=== PATIENT | male | born 1935 | race Caucasian/White ===

== ENCOUNTER 2023-12-31 19:23 | Observation (INO) | payer OTHER, SELFPAY ==
[2023-12-31 16:41] VITALS: BMI 27.8
[2023-12-31 16:46] VITALS: BP 119/99
--- NOTE | 2023-12-31 16:53 | EDRN ---
Haritha Brian PA in room w/ pt at this time.
[2023-12-31 17:00] VITALS: BP 143/95
[2023-12-31 17:07] LABS: % Basophils 0.6 % (0-2); % Eosinophils 2.2 % (0-6); % Immature Granulocytes 0.6 % (0-0.5); % Lymphocytes 28.2 % (20.5-51.1); % Monocytes 10.9 % (1.7-9.3); % Neutrophils 57.5 % (42.2-75.2); Absolute Basophils 0.1 10^3/uL (0-0.2); Absolute Eosinophils 0.3 10^3/uL (0-0.7); Absolute Immature Granulocytes 0.1 10^3/uL (0-0.05); Absolute Lymphocytes 3.2 10^3/uL (1.2-3.4); Absolute Monocytes 1.2 10^3/uL (0.1-0.6); Absolute Neutrophils 6.5 10^3/uL (1.4-6.5); Hematocrit 31.8 % (39.0-52.0); Hemoglobin 10.7 g/dL (13.0-18.0); Mean Corp Hgb Conc. 33.6 g/dL (33.0-37.0); Mean Corpuscular Hgb 31.5 pg (27.0-31.0); Mean Corpuscular Volume 93.5 fL (80.0-94.0); Mean Platelet Volume 10.8 fL (7.4-10.4); Nucleated Red Blood Cells % 0 % (-); Platelet Count 142 10^3/uL (130-400); Red Cell Dist. Width 14.4 % (11.5-14.5); White Blood Cell Count 11.2 10^3/uL (4.8-10.8)
[2023-12-31 17:16] LABS: INR 2.75
[2023-12-31 17:19] LABS: Lactic Acid 1.2 mmol/L (0.7-2.0)
[2023-12-31 17:20] LABS: ALT (SGPT) 26 U/L (0-50); AST (SGOT) 37 U/L (17-59); Alkaline Phosphatase 161 U/L (38-126); Blood Urea Nitrogen 26 mg/dl (9-20); Calcium 9.2 mg/dl (8.4-10.2); Carbon Dioxide 24 mmol/L (22-30); Chloride 106 mmol/L (98-107); Estimated Creatinine Clearance 48 ml/min; Glucose 171 mg/dl (70-99); Potassium 4.4 mmol/L (3.5-5.1); Sodium 139 mmol/L (135-145); Total Bilirubin 0.8 mg/dl (0.2-1.3); Total Protein 6.6 g/dl (6.3-8.2); eGFR > 60.00
--- NOTE | 2023-12-31 17:20 | EDRN ---
Pacemaker interrogated at this time.
[2023-12-31 17:30] LABS: NT-proBNP 2590 pg/ml; Troponin I < 0.012 ng/ml
--- NOTE | 2023-12-31 17:50 | EDRN ---
Pt attempting urine spec in BR at this time.
[2023-12-31 18:03] VITALS: BP 153/92
--- NOTE | 2023-12-31 18:11 | EDRN ---
Pt ambulated w/ assist of one to and from BR and provided a urine spec. Haritha FLOYD is w/ pt and family in room at this time.
--- NOTE | 2023-12-31 18:12 | ED.GENMED ---
History of Present Illness
General
Chief Complaint: Breathing Problem
Time Seen by Provider: 12/31/23 16:59
Travel History
Have you had any contact with someone who has COVID-19?: No
Do you have any symptoms of coronavirus? Fever > 100 degrees, chills, cough, shortness of breath, sore throat, loss of taste or smell, muscle aches, or headache?: Yes
Symptoms:: SOB
History of Present Illness
History of Present Illness:
88-year-old male with history of hypertension, hyperlipidemia, coronary artery disease status post CABG x 5 (greater than 20 years ago at [facility]), diet-controlled type 2 diabetes, and status post PPM presents to the emergency department
for evaluation after a syncopal event. He had notes that he has been dyspneic on exertion for the past 3 to 4 days and is planning to follow-up with his bail bondsman next week for reevaluation. Denies any current chest pain or shortness of breath
while at rest. He arrives by EMS today as he was apparently walking to get the mail he states he began to feel lightheaded and gradually went himself to the ground. He had a syncopal event that was witnessed by bystander, no reported fall or head
strike . He does take Xarelto. Follows with Dr. Samuels through [facility] cardiology
Past History
Past History
ED Past Medical History: CAD, HTN, Hypercholesterolemia, NIDDM, Other (Diverticulosis, GI bleed March 2015) and Other (kidney stones)
ED Past Surgical History: Cardiac (pacer, CABG x4)
Social History
Tobacco: Non-smoker
Alcohol: None
Drug: None
Personal:
Living: with family
Employment: Retired
Family History
Family History: Other (Noncontributory)
Review of Systems
Review of Systems
Allergies reviewed?: Yes
All Other Systems: ROS reviewed and negative except as documented in HPI and ROS
Phy Exam
Physical Exam
Physical Exam:
GEN: Well appearing, NAD, WDWN
Eyes: PERRLA, EOMs intact, no scleral icterus
HENT: NCAT, oral mucosa moist, no JVD
Lungs: CTAB, no wheezes, rales, rhonchi, normal chest wall excursion
Cardiac: RRR, 4/6 holosystolic murmur, no rubs
Abdomen: S, NT, ND, NABS, no masses or hepatosplenomegaly
Neuro: AO x 3, no focal deficits to BUE/BLE, normal sensation throughout
MSK: No gross deformity or ecchymosis. No edema. No digital clubbing
Skin: No rashes, petechiae. Normal color, no pallor or jaundice.
Psych: Calm, cooperative, proper hygiene
Scores
Heart Failure Risk
Heart Failure Risk Score: Not Applicable
Course
Orders/Labs/Results
Orders:
Orders
12/31/23 Breakfast
Cholesterol Lowering
12/31/23 Dinner
2000 calorie (17 carb) Diabetic
Diabetic Diet: Cholesterol Lowering
Sodium, 2 Gram
12/31/23 16:44
Electrocardiogram (*1) Urgent
Reason for Study: Other
Other Reason for Exam: Possible Sepsis
Cardiac Monitoring- Treatment ONCE
IV Insert/Care/Rem.- Treatment PRN
12/31/23 16:45
CT Head W/o Iv Contrast Urgent
Comment:
Reason For Exam: syncope
EKG- Treatment ONCE
CR Chest - 2 Views Urgent
Comment:
Reason For Exam: suspected infection
12/31/23 16:58
Complete Blood Count/With Diff Urgent
Comprehensive Metabolic Panel Urgent
Lactic Acid Q4H
Comment: ON ICE, CANCEL 2ND ORDER IF FIRST LACTIC ACID LEVEL <2
NT-proBNP Urgent
Prothrombin Time Urgent
Troponin I Urgent
Urinalysis Reflex To Culture Urgent
Date Specimen was Collected: 12/31/23
Time Specimen was Collected: 16:45
Urine Microscopic Reflex Cult Urgent
Blood Culture Q30M
TIMI Source: Blood/Venous
Specimen Description:
Comment: FROM 2 SEPARATE SITES
Urine Culture Urgent
TIMI Source: U
Specimen Description:
Date Specimen was Collected: 12/31/23
Time Specimen was Collected: 16:45
12/31/23 17:10
Blood Culture Q30M
TIMI Source: Blood/Venous
Specimen Description:
Comment: FROM 2 SEPARATE SITES
12/31/23 18:55
Admit/Transfer Patient As Directed
Co-Sign Provider:
Level of Care: Observation services
Assign to:: Telemetry
Physician / Group: Hasmukh
Diagnosis: Syncope
Reason for Telemetry: Syncope
Date to Stop Telemetry: 01/02/24
Time to Stop Telemetry: 11:00
12/31/23 18:59
Code Status As Directed
Resuscitation Status: Full Code
12/31/23 20:30
Acetaminophen [Tylenol] 650 mg PO Q4HPRN PRN
Dextrose 50%-Water [Dextrose 50% Syringe] 12.5 grams IV [id number] PRN
Glucagon [GlucaGen] 1 mg IM PRN PRN
12/31/23 20:30
Echo 2D MMode Color/Doppler Routine
Reason for Study: syncope, murmur
Cardiology Consult: Star Pickens
CARDIOLOGY CONSULT Routine
Consulting Provider: Star Pickens
Was physician already notified: Yes
Activity As Directed
Activity Level: Out of Bed- Chair
Bedside Glucose Monitoring As Directed
Frequency: AC&HS
Comment: Change to q6h if pt on TPN, tube feeding or not eating
I&O [Intake/ Output] As Directed
Frequency: q12h
Orthostatic Vital Signs As Directed
Orthostatic VS Frequency: BID
Pneumatic Compression Sleeves As Directed
Type: Knee high
Vital Signs As Directed
Frequency: Per unit guidelines
Weight As Directed
Frequency: Daily
DX Deep Vein Thrombosis Video Routine
01/01/24 06:00
Basic Metabolic Panel IN AM
Complete Blood Count/No Diff IN AM
Glycohemoglobin (HgbA1c) IN AM
Magnesium IN AM
TSH Reflex To Free T4 IN AM
01/01/24 07:30
Insulin Aspart Corrective Low [Novolog Flexpen-Low Resistance] See Protocol SC AC
01/01/24 08:00
Atorvastatin [Lipitor] 10 mg PO DAILY
Metoprolol Xl [Toprol Xl] 25 mg PO DAILY
Multivitamin [Theragran] 1 tablet PO DAILY
Rivaroxaban [Xarelto] 15 mg PO DAILY
Tolterodine Extended Release [Detrol LA] 4 mg PO DAILY
Torsemide [Demadex] 20 mg PO DAILY
01/02/24 11:00
DC Protocol for Telemetry ONCE
Abnormal Lab Results
12/31/23
16:58
WBC 11.2 H 10^3/uL
(4.8-10.8)
RBC 3.40 L 10^6/uL
(4.70-6.10)
Hgb 10.7 L g/dL
(13.0-18.0)
Hct 31.8 L %
(39.0-52.0)
MCH 31.5 H pg
(27.0-31.0)
MPV 10.8 H fL
(7.4-10.4)
Abs Immat Gran (auto) 0.1 H 10^3/uL
(0-0.05)
Absolute Monos (auto) 1.2 H 10^3/uL
(0.1-0.6)
Immature Gran % 0.6 H %
(0-0.5)
Monocytes % 10.9 H %
(1.7-9.3)
PT 29.0 H Sec
(11.4-14.6)
BUN 26 H mg/dl
(9-20)
Glucose 171 H mg/dl
(70-99)
Alkaline Phosphatase 161 H U/L
(38-126)
Ur Occult Blood Reflex 1+ A
(Negative)
Urine Nitrite (Reflex) Positive A
(Negative)
Leukocyte Esterase Rfl 2+ A
(Negative)
Urine RBC 3-6 A /HPF
(0-2)
Urine WBC (Reflex) 50-60 A /HPF
(0-5)
Urine Bacteria (Reflex) Many A
(Negative)
Urine Glucose Trace A
(Negative)
12/31/23 16:58
12/31/23 16:58
Vital Signs
Initial and Last Documented VS:
Initial Vital Signs
Temp Pulse Resp Pulse Ox
98.4 F 78 24 98
12/31/23 16:41 12/31/23 16:41 12/31/23 16:41 12/31/23 16:41
Last Documented Vital Signs
Temp Pulse Resp BP Pulse Ox
98.4 F 68 15 157/89 96
12/31/23 16:41 12/31/23 19:15 12/31/23 19:15 12/31/23 19:00 12/31/23 19:15
MDM/Problems Addressed
MDM/Problems Addressed:
EKG independently interpreted by me shows normal sinus rhythm with a right bundle branch block, there are T wave inversions in the precordial leads that are new compared to prior EKG. No elevations concerning for ischemia
88-year-old male presents after a syncopal event. Of note he has had dyspnea on exertion for the past several days. Device interrogation shows no evidence for cardiac arrhythmia provoking his event today. He has noted to have an impressively loud
holosystolic murmur, highly concern for severe progression of aortic stenosis that is known. Will admit to the hospitalist service for further workup and cardiology evaluation
*Critical Care Note
Total Time (30-74mins, 75-104mins- exclusive of procedures): Not Applicable
ED Attending Note
-
Portions of this chart may have been created with voice recognition software.� Occasional wrong word or��sound alike� substitutions may have occurred due to the inherent limitations of voice recognition software.
Discharge Plan
Departure
Patient Disposition: Admit
Date of Disposition: 12/31/23
Time of Disposition: 18:16
Admit to: IVU
Presentation/result/management discussed w/ accepting MD/DO: Hospitalist
Discharge Problem:
Syncope, Aortic stenosis
Interventions
Interventions:
*Risk Screen - Suicide Last Done: 12/31/23 16:41
*General Assessment Last Done: 12/31/23 16:41
*Neglect/Abuse Screening Last Done: 12/31/23 16:41
ED- Fall Risk Assessment Last Done: 12/31/23 17:04
*ED COVID-19 Vaccine History Last Done: 12/31/23 16:41
*Nursing Disposition Last Done: 12/31/23 19:28
ED- Cardiac Assessment Last Done: 12/31/23 17:04
ED- Neurological Assessment Last Done: 12/31/23 17:04
ED- Pulmonary Assessment Last Done: 12/31/23 17:04
Discharge Date and Time
Discharge Date/Time: 12/31/23 20:27
[2023-12-31 18:53] LABS: Urine Albumin Trace (Neg - Trace); Urine Bilirubin Negative (Negative); Urine Character Slightly Cloudy (Clear); Urine Color Yellow; Urine Glucose Trace (Negative); Urine Ketone Negative (Negative); Urine Leukocyte 2+ (Negative); Urine Nitrite Positive (Negative); Urine Occult Blood 1+ (Negative); Urine Urobilinogen Negative (Neg - 1+)
[2023-12-31 19:00] VITALS: BP 157/89
--- NOTE | 2023-12-31 19:07 | HPS.HSE ---
Addendum entered and electronically signed by Naheed Noe DO 12/31/23 20:31:
The patient is seen and examined and discussed with Tameka. I have reviewed and agree with her history and physical, assessment and plan of care as per below.
VSS, AF
PE: CV 3/6 systolic murmur, RRR
Lungs CTA b/l no w/r/r, no crackles, respiratory status is stable, no use of accessory muscles, speaking in full sentences without difficulty
Abd soft, nt/nd normal bs
Ext no c/c/1+ mild edema b/l LE ankles
Syncope, unknown etiology, concern is for cardiogenic syncope in the setting of valvular disease, concern is for worsening causing symptoms.
Abnormal UA without UTI symptoms, hold off on abx at this time, follow clinically and follow urine cx.
Original Note:
Family Physician
-
Family Physician: Pranav Matos
Chief Complaint
-
Syncope
History of Present Illness
Patient is a 88 y/o male past medical history of CAD, A-fib, HTN, and DM who presents following a syncopal episode. Patient states he had walking out to get the mail, and he dropped a piece. He bent over to pick it up and it blew away so he got
down on all fours to reach for it and then he passed out. Family at bedside note patient has had two similar episodes recently. Patient has noted increased dyspnea on exertion over the past few days, and notes slight increased slower extremity
edema. He denies any chest pain or palpitations.
Medical History
Past Medical History
Past Medical History: Reports Other
Additional Past Medical History:
Coronary Artery Disease s/p CABG
Chronic HFpEF
Paroxysmal Atrial Fibrillation
Essential Hypertension
Hyperlipidemia
Diabetes Mellitus, Type II
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
Prostate Cancer s/p Radiation
Overactive Bladder
Past Surgical History: Reports Other
Additional Past Surgical History:
CABG x 5
Permanent Pacemaker
Back Surgery x 2
Social History
Tobacco: Non-smoker
Alcohol: None
Drug: None
Personal:
Living: With Family
Family History
Family History: Other (Heart disease, back problems, mother had stroke, brother had diabetes)
Allergies / Home Medications
Allergies reflects when Allergies were last updated in [facility] ?.
Home Medications with original date entered in [facility] ?
Allergy/Medication List:
Allergies
Allergy/AdvReac Type Severity Reaction Status Date / Time
No Known Allergies Allergy Verified 12/31/23 16:41
Home Medications
metoprolol succinate 25 mg tablet,extended release 24 hr (Toprol XL) 25 mg PO DAILY Blood pressure 01/11/19
lrllusyi-pdl-hqkxa acid 0.4 mg-lycopene 300 mcg-lutein 250 mcg tablet (Centrum Silver) 1 ea PO DAILY Supplement 01/11/19
simvastatin 20 mg tablet 20 mg PO DAILY High cholesterol 01/11/19
rivaroxaban 15 mg tablet (Xarelto) 15 mg PO DAILY Blood clot prevention/tx 02/13/23
tramadol 50 mg tablet 50 mg PO TID PRN Pain 02/13/23
vibegron 75 mg tablet (Gemtesa) 75 mg PO DAILY Overactive bladder 02/13/23
acetaminophen 325 mg tablet 650 mg PO Q4HPRN PRN mild pain/PEÑA/temp> 100.4F #0 tabs 02/15/23
torsemide 20 mg tablet 20 mg PO .4 X PER WEEK PRN w/ edema 12/31/23
Review of Systems
-
A 12 point ROS was completed and negative except as noted: Yes
Constitutional: Denies Fever or Chills
Respiratory: Denies Cough
Cardiac: Reports Syncope; Denies Chest Pain or Palpitations
Abdomen/GI: Denies Abdominal Pain, Nausea, Vomiting or Diarrhea
Physical Exam
Vital Signs
Vital Signs
Temp Pulse Resp BP Pulse Ox
98.4 F 79 37 153/92 96
12/31/23 16:41 12/31/23 18:45 12/31/23 18:45 12/31/23 18:03 12/31/23 18:30
Physical Exam
General: Comfortable and Conversant
HEENT: NormoCephalic, Anicteric and Moist mucous membranes
Respiratory: Rales (Bilateral Bases) and Non Labored Respirations
Cardiac: S1/S2, Regular Rhythm and Murmur (3/6 Systolic Murmur hear best at right upper sternal border)
GI: Soft and Non Tender
Rectal: Deferred by Provider
Musculoskeletal: No Clubbing, No Cyanosis and No Edema
Skin: Warm and Dry
Neuro: Awake, Alert, Oriented and Nonfocal/grossly intact
Laboratory Results
-
12/31/23 16:58
12/31/23 16:58
Laboratory Results
PT 29.0 Sec (11.4-14.6) H 12/31/23 16:58
INR 2.75 12/31/23 16:58
Lactic Acid Cancelled 12/31/23 20:45
Total Bilirubin 0.8 mg/dl (0.2-1.3) 12/31/23 16:58
AST 37 U/L (17-59) 12/31/23 16:58
ALT 26 U/L (0-50) 12/31/23 16:58
Alkaline Phosphatase 161 U/L (38-126) H 12/31/23 16:58
Troponin I < 0.012 ng/ml 12/31/23 16:58
Data Reviewed
-
Diagnostic Radiology: Image Personally Visualized and interpreted
CT Scan: Report Reviewed by me
Lab Data: Labs Reviewed by me
Impression/Plan
-
Syncope, possibly related to worsening aortic stenosis
-Consult Cardiology
-Check Echocardiogram
-Check orthostatic vital signs
-Monitor on Telemetry
Chronic HFpEF, mild acute exacerbation
-Patient reports not taking diuretics since (December 27)
-Increase torsemide 20mg PO Daily
-Monitor Is&Os and Daily Weights
Coronary Artery Disease s/p CABG
-Stable
Paroxysmal Atrial Fibrillation
-Continue Xarelto for anticoagulation
-Continue Toprol XL for rate control
Hyperlipidemia
-Continue simvastatin
Diabetes Mellitus, Type II - Diet Controlled
-Continue diabetic diet
-Monitor sugars
CKD Stage IIIA
-Monitor creatinine
DVT proph: Xarelto
Code Status: Full Code
[2023-12-31 19:11] LABS: Urine Bacteria Many (Negative); Urine White Cell 50-60 /HPF (0-5)
[2023-12-31 21:02] VITALS: BP 152/91; BMI 26.7
[2023-12-31 21:50] LABS: Glucose - Point of Care 207 mg/dl (70-99)
[2023-12-31 23:04] VITALS: BP 131/64
--- NOTE | 2023-12-31 23:55 | PTCARENOTE ---
Rec'd pt from the ER. Walked from stretcher to the bed. Denies pain. Tele pack #24 applied. Pt ambulated to the bathroom using a walker. Pt is asking to have his medical records sent to his son who is a physician. provided him with the phone number
for medical records. oriented to room. call suresh in reach.
[2024-01-01] VITALS (9 sets, daily range): BP systolic 130–149; BP diastolic 59–74; PULSE 75–79; O2SAT 97; BMI 26.7
[2024-01-01 00:59] LABS: Troponin I 0.026 ng/ml
[2024-01-01 04:22] LABS: Glucose - Point of Care 169 mg/dl (70-99)
--- NOTE | 2024-01-01 06:22 | PTCARENOTE ---
0415 pt stated he had the chills. vital signs taken, 147/67 62 18 97.7 99% on RA. blood sugar checked as he felt it might be that. Was 169. Denies dizziness or lightheadedness. Denies chest pain. Given some blankets.
[2024-01-01 07:51] LABS: Glucose - Point of Care 151 mg/dl (70-99)
--- NOTE | 2024-01-01 08:28 | CON.CAR ---
Addendum entered and electronically signed by Troy Vickers MD 01/01/24 10:26:
I saw and examined the patient.
The TWX OPERATOR's note was reviewed and I agree with the note.
Primary gravure printing machinist Dr Cory Samuels
88 y/o male with CAD/CABG x 5 2001 .[employer] Pacemaker (VVI mode, non-functioning atrial lead), aflutter s/p ablation 2011, PAF on Xarelto, hypertension, hyperlipidemia, DM, who presents with syncope. patient had been having some symptoms of
lightheadedness shortly after standing consistent wit orthostatic symptoms. Recently Enalapril discontinued. Event prior to admit he dropped mail and initially bent at the hip to pick it up but it moved so he got on all 4's and the became
lightheaded and roled on back with suspected syncope. PPM functioing appropriately. Exact etiology unclear. No evidencof arrhtyhmia t this point. Could have been vagal related to bending and perhaps straining to reach mail
- telemetry
- orthostatic vitals
- echo
- ambulatory pulse ox
- await test results. if he remains stable on telemetry and no clear etiology then consider outatient order filler
- note patietn already ahs a visit scheduled with Dr Samuels on Mon
Original Note:
Consultation
Consultation Request
Date/Time Consultation Requested: 12/31/232029
Date/Time Consultation Performed: 01/01/24 0810
Requesting Provider: Tameka Kelly PA-C
Performing Provider: Zandra NAIK for Dr. Vickers
Reason for Consultation: syncope
Medical History
-
Chief Complaint: syncope
History of Present Illness:
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
radiation. He is here after an episode of syncope. Briefly, [place] walking about 15 yards to get the mail. He dropped some things on the ground and went down to pick them up. He notes that his
balance is bad and he ended up on all fours, but he did feel light-headed and remembers rolling onto his back, and he thinks that is when he lost consciousness because he woke up to EMS. He is planning to see his gravure printing machinist, Dr. Samuels, this
Monday because he has been having issues with EMERY, as well as light-headed spells. He notes the EMERY at PT. He has a dry cough. He notes the light-headed symptoms after he has been sitting awhile, then gets up to ambulate. It usually goes away
after about [address] Samuels recently stopped his enalapril for orthostasis, and patient does think it helped a bit. He follows with Dr. Olmstead for urinary issues and sometimes needs to self-catheterize. He is on Torsemide 4 times per
week, but didn't take it the past few days. Pacemaker check was unremarkable. Orthos not yet complete- discussed with nursing to complete this AM. He is in no distress at the time of my assessment.
Past Medical History
Past Medical History: Arrhythmias, CAD, Cancer, HTN, Hypercholesterolemia, NIDDM and Other (as above)
Social History
Tobacco: Non-Smoker
Personal:
Living: With Family
Allergies / Home Medications
Allergy/AdvReac Type Severity Reaction Status Date / Time
No Known Allergies Allergy Verified 12/31/23 16:41
Medication Instructions Recorded Confirmed Type
metoprolol succinate 25 mg 25 mg PO DAILY Blood pressure 01/11/19 12/31/23 History
tablet,extended release 24 hr
(Toprol XL)
ylwlynsl-cas-nanxc acid 0.4 1 ea PO DAILY Supplement 01/11/19 12/31/23 History
mg-lycopene 300 mcg-lutein 250 mcg
tablet (Centrum Silver)
simvastatin 20 mg tablet 20 mg PO DAILY High cholesterol 01/11/19 12/31/23 History
rivaroxaban 15 mg tablet (Xarelto) 15 mg PO DAILY Blood clot 02/13/23 12/31/23 History
prevention/tx
tramadol 50 mg tablet 50 mg PO TID PRN Pain 02/13/23 12/31/23 History
vibegron 75 mg tablet (Gemtesa) 75 mg PO DAILY Overactive bladder 02/13/23 12/31/23 History
acetaminophen 325 mg tablet 650 mg PO Q4HPRN PRN mild 02/15/23 12/31/23 Rx
pain/PEÑA/temp> 100.4F #0 tabs
torsemide 20 mg tablet 20 mg PO .4 X PER WEEK PRN w/ edema 12/31/23 12/31/23 History
Review of Systems
-
History Source: Patient
All other systems: Negative unless noted
Constitutional: Other (light-headedness)
Respiratory: Cough and Trouble Breathing
Cardiac: Syncope
Physical Exam
Vital Signs
Temp Pulse Resp BP Pulse Ox
98.5 F 68 18 149/74 96
01/01/24 07:30 01/01/24 07:30 01/01/24 07:30 01/01/24 07:30 01/01/24 07:30
Lab Results
Troponin I 0.026 ng/ml D 01/01/24 00:21
Zhi-L-Bqfidmocotg Pept 2590 pg/ml 12/31/23 16:58
Physical Exam
General: Well Developed, Well Nourished and No Apparent Distress
HEENT: Normocephalic and Anicteric
Respiratory: Other (coarse lung sounds to bases, on RA, no respiratory distress)
Cardiac: Regular Rhythm and Murmur (II/ systolic murmur)
Musculoskeletal: Edema (mild BLE edema)
Skin: Warm and Dry
Neuro: AO x 3
Psych: Calm
Impression / Plan
-
Syncope:
-pacemaker check unremarkable
-check echo
-follow telemetry
-patient with hx orthostasis per OP chart (ACEI was stopped)- check orthos here- discussed with nursing
-check ambulatory pulse ox
HFpEF: chronic
-PO diuretic resumed at daily while here, rather than 4x weekly since he missed a few doses and has mild LE edema
-monitor volume
-checking echo
CAD s/p CABG:
-stable without angina
-continue medical therapy
:
-mild 2021
-updating echo
Abnormal UA, leukocytosis:
-patient does self-cath PRN
-patient on IV abx- management per primary team, urine cx pending
PAF:
-stable in SR
-continue Xarelto and metoprolol
Data Reviewed
-
EKG: Tracing Personally Visualized and interpreted (SR with RBBB- no acute change from previous OP EKG)
Radiology: Report Reviewed by me (CXR 12/31/23: Subtle hazy increased density involving the left mid lung on the frontal view. Cardiomegaly. Vascular flow appears cephalized)
Medical Tests (Nuc Med, Echo etc): Report Reviewed by me (Echo 01/31/22: Normal biventricular size and systolic function without regional wall motion abnormality. Stage I diastolic dysfunction suggestive of abnormal relaxation. Mild aortic
stenosis. Mild pulmonary hypertension.) and Other (01/11/2019 cath: : Normal left ventricular function with EF 63%. Severe yuha[place] triple-vessel CAD as described with patent FELIX-LAD, SVG-OM 2, SVG-D2, SVG-RPDA bypass grafts. The SVG-RPL graft is
occluded)
Labs: Labs Reviewed by me
[2024-01-01 08:58] LABS: Hematocrit 31.8 % (39.0-52.0); Hemoglobin 10.5 g/dL (13.0-18.0); Mean Corpuscular Hgb 31.3 pg (27.0-31.0); Mean Corpuscular Volume 94.9 fL (80.0-94.0); Mean Platelet Volume 11.3 fL (7.4-10.4); Platelet Count 130 10^3/uL (130-400); Red Blood Cell Count 3.35 10^6/uL (4.70-6.10); Red Cell Dist. Width 14.6 % (11.5-14.5); White Blood Cell Count 9.6 10^3/uL (4.8-10.8)
[2024-01-01] MEDS: LIPITOR 10 MG PO (09:18)
[2024-01-01] MEDS: NOVOLOG FLEXPEN-LOW RESISTANCE 1 UNITS SC (09:18)
[2024-01-01] MEDS: TOPROL XL 25 MG PO (09:19)
[2024-01-01] MEDS: DEMADEX 20 MG PO (09:19)
[2024-01-01] MEDS: XARELTO 15 MG PO (09:19)
[2024-01-01] MEDS: THERAGRAN 1 TABLET PO (09:19)
[2024-01-01] MEDS: DETROL LA 4 MG PO (09:19)
[2024-01-01 09:24] LABS: Blood Urea Nitrogen 25 mg/dl (9-20); Calcium 9.3 mg/dl (8.4-10.2); Carbon Dioxide 23 mmol/L (22-30); Chloride 109 mmol/L (98-107); Estimated Creatinine Clearance 53 ml/min; Glucose 151 mg/dl (70-99); Magnesium 2.2 mg/dl (1.6-2.3); Potassium 4.7 mmol/L (3.5-5.1); Sodium 136 mmol/L (135-145); eGFR > 60.00
[2024-01-01 09:54] LABS: TSH Reflex To Free T4 1.87 uIU/ml (0.47-4.68)
[2024-01-01 10:10] LABS: Glycohemoglobin (HgbA1c) 7.6 % (4.0-5.6)
[2024-01-01 13:23] LABS: Glucose - Point of Care 205 mg/dl (70-99)
[2024-01-01] MEDS: NOVOLOG FLEXPEN-LOW RESISTANCE 2 UNITS SC (13:31)
--- NOTE | 2024-01-01 15:25 | W.PN.HOSP.TC ---
Today's Communication/Plan
-
cont to monitor on tele
increase ventricular rate as per cards
Assessment / Plan
Assessment / Plan
Physical Exam
General: Well Developed, Well Nourished and No Apparent Distress
HEENT: Normocephalic and Anicteric
Respiratory: Other (coarse lung sounds to bases, on RA, no respiratory distress)
Cardiac: Regular Rhythm and Murmur (II/ systolic murmur)
Musculoskeletal: Edema (mild BLE edema)
Skin: Warm and Dry
Neuro: AO x 3
Psych: Calm
Syncope, possibly related to worsening aortic stenosis
-Consult Cardiology
- Echocardiogram�increase PA pressures although no other significant abnormalities
� Increased ventricular rate on device
� Orthostatics negative
�Continue to monitor on telemetry
Chronic HFpEF
-Patient reports not taking diuretics since (December 27)
-torsemide 20mg PO Daily
-Monitor Is&Os and Daily Weights
Coronary Artery Disease s/p CABG
-Stable
Paroxysmal Atrial Fibrillation
-Continue Xarelto for anticoagulation
-Continue Toprol XL for rate control
Hyperlipidemia
-Continue simvastatin
Diabetes Mellitus, Type II - Diet Controlled
-Continue diabetic diet
-Monitor sugars
CKD Stage IIIA
-Monitor creatinine
DVT proph: Xarelto
Code Status: Full Code
Anticipated Discharge: Within 24 hours
Subjective/Interval History
-
Date of Service: January 01, 2024
Orthostatics negative, device interrogated with no arrhythmias.
Objective Data
-
Labs:
Laboratory Results
01/01/24
08:10
WBC 9.6
Hgb 10.5 L
Hct 31.8 L
Plt Count 130
Sodium 136
Potassium 4.7
Chloride 109 H
Carbon Dioxide 23
BUN 25 H
Creatinine 0.9
Glucose 151 H
Calcium 9.3
Vital Signs:
Vital Signs
Temp Pulse Resp BP Pulse Ox
97.7 F 61 18 130/65 98
01/01/24 14:30 01/01/24 14:30 01/01/24 14:30 01/01/24 14:30 01/01/24 14:30
I&O
12/31/23 01/01/24 01/02/24
06:59 06:59 06:59
Intake Total 120 / 120
Balance 120 / 120
Review of Systems
-
All other systems: Reviewed and negative
Physical Exam
-
General: Well Developed, Well Nourished and No Apparent Distress
HEENT: Normocephalic and Atraumatic
Respiratory: Clear to Auscultation; Negative Wheezes or Rhonchi
Cardiac: Regular Rhythm and S1/S2; Negative Murmur
GI: Soft, Nontender, Nondistended and Normal Bowel Sounds
Musculoskeletal: No Clubbing, No Cyanosis and No Edema
Skin: Warm
Neuro: Awake
--- NOTE | 2024-01-01 15:39 | CM ---
Reviewed chart, met with patient to obtain information for assessment. Patient's was at bedside. Patient lives with her in a two story home with three steps to enter. Patient stated that he is independent with his ADLs, personal care, bathing,
dressing, toileting and uses a cane for short distances to assist with his ambulation and a walker for long distances. He denied any other DME in the home. Patient's does all the cooking, cleaning, laundry and they share log cutter.
Both patient and his can drive and can get to appointments and do their own shopping.
Patient stated that he has never had VN services in the past. He has not been to a SNF.
Patient is hopeful that he will be able to return home when cleared medically.
Plan: Case management will continue to follow and assist with discharge planning. Tentative home with no needs.
--- NOTE | 2024-01-01 15:53 | W.PN.UPDATE ---
Update Note
Progress Note Update
Echocardiogram previous studies.� Monitor without any further arrhythmias.� Pacemaker functioning appropriately via [facility] I also reviewed issues with the Medtronic rep and had repeat patient's device reassessed.� It is functioning appropriately.�
Patient only paces 3% of the time.� Set up VVI 40.� Base rate increased to 50.� Issues reviewed with both the patient and his at bedside.� Also additional discussion with the patient's primary furnace mechanic Dr. Samuels.� Will continue observation
overnight.� If no arrhythmias and the patient continues to feel well then we will plan for outpatient follow-up with Dr. Samuels and additional palpation cardiac monitoring.� Dr. Samuels will be arranging the monitor. The patient has an office visit
scheduled this week
[2024-01-01 16:53] LABS: Glucose - Point of Care 128 mg/dl (70-99)
[2024-01-01] MEDS: NOVOLOG FLEXPEN-LOW RESISTANCE SC (17:36)
[2024-01-01 22:14] LABS: Glucose - Point of Care 163 mg/dl (70-99)
[2024-01-02 03:14] VITALS: BP 130/60
[2024-01-02 06:00] VITALS: BMI 26.0
[2024-01-02 07:28] VITALS: BP 116/99
[2024-01-02] MEDS: LIPITOR 10 MG PO (07:58)
[2024-01-02] MEDS: DEMADEX 20 MG PO (07:58)
[2024-01-02] MEDS: TOPROL XL 25 MG PO (07:58)
[2024-01-02] MEDS: DETROL LA 4 MG PO (07:58)
[2024-01-02] MEDS: XARELTO 15 MG PO (07:58)
[2024-01-02] MEDS: THERAGRAN 1 TABLET PO (07:58)
[2024-01-02] MEDS: NOVOLOG FLEXPEN-LOW RESISTANCE SC (08:15)
[2024-01-02 08:16] LABS: Glucose - Point of Care 141 mg/dl (70-99)
[2024-01-02 08:58] LABS: Hematocrit 32.7 % (39.0-52.0); Mean Corp Hgb Conc. 33.6 g/dL (33.0-37.0); Mean Corpuscular Hgb 31.5 pg (27.0-31.0); Mean Corpuscular Volume 93.7 fL (80.0-94.0); Platelet Count 145 10^3/uL (130-400); Red Blood Cell Count 3.49 10^6/uL (4.70-6.10); Red Cell Dist. Width 14.6 % (11.5-14.5); White Blood Cell Count 9.5 10^3/uL (4.8-10.8)
[2024-01-02 09:14] LABS: Blood Urea Nitrogen 33 mg/dl (9-20); Calcium 9.5 mg/dl (8.4-10.2); Carbon Dioxide 27 mmol/L (22-30); Chloride 103 mmol/L (98-107); Estimated Creatinine Clearance 44 ml/min; Glucose 132 mg/dl (70-99); Potassium 4.1 mmol/L (3.5-5.1); Sodium 136 mmol/L (135-145); eGFR > 60.00
--- NOTE | 2024-01-02 09:29 | W.PN.CD ---
Addendum entered and electronically signed by Oj Borrero MD 01/02/24 09:56:
I updated his son.
Will suggest to Dr. Samuels a 14-28 day monitor to look for very rare pacer malfunction.
Original Note:
Today's Communication / Plan
-
No additional in ptateint workup planned
Impression / Plan
-
Unexplained Syncope:
-pacemaker check unremarkable
-check echo OK except increased PASP. Dr. Vickers reviewed with Dr. Samuels
-follow telemetry, so far OK
- Could have been vagal related to bending and perhaps straining to reach mail
- Orthostatic vitals OK
- Pacer base rate increased yesterday
- No furher in patient workup planned
- F/u with Dr. Samuels
HFpEF: chronic
-Back on diuretic
- Defer adding GDMT to Dr. Samuels (SGLT inhibitor, MRA, etc)
CAD s/p CABG:
-stable without angina
-continue medical therapy
:
-still mild
PAF:
-stable in SR
-continue Xarelto and metoprolol
Physical Exam
Vital Signs/Labs
Vital Signs
Temp Pulse Resp BP Pulse Ox
97 F 72 24 116/99 96
01/02/24 07:28 01/02/24 07:28 01/02/24 07:28 01/02/24 07:28 01/02/24 07:28
01/01/24 01/02/24 01/03/24
06:59 06:59 06:59
Actual Weight 75.013 kg 73.028 kg
01/02/24 08:15
01/02/24 08:15
PT 29.0 Sec (11.4-14.6) H 12/31/23 16:58
INR 2.75 12/31/23 16:58
Magnesium 2.2 mg/dl (1.6-2.3) 01/01/24 08:10
12/31/23
16:58
Lvh-T-Nclcgbjafwe Pept 2590
LAB Results
12/31/23 01/01/24
16:58 00:21
Troponin I < 0.012 0.026 D
Physical Exam
Constitutional: No acute distress
EENT: Anicteric
Cardiovascular: Rhythm & rate is regular and Pedal edema is absent
Respiratory: Respiratory effort normal and Lungs clear to auscul.
GI: Soft and Distention absent
Neuro/Psych: AO x 3
Data Reviewed
-
Date of Service: January 02, 2024
[2024-01-02 11:23] VITALS: BP 143/70
--- NOTE | 2024-01-02 11:33 | CM ---
Patient seen bedside with , discussed PT/OT recommendation of outpatient PT. Patient agreeable, TT sent to Hospitalist for script for outpatient PT. CARMICHAEL letter reviewed, refused to sign, placed in patients chart. Patient reports he has
transportation home from his . CM will continue to follow for discharge planning needs.
Plan; home with script for outpatient PT.
[2024-01-02 11:44] LABS: Glucose - Point of Care 169 mg/dl (70-99)
[2024-01-02] MEDS: NOVOLOG FLEXPEN-LOW RESISTANCE 1 UNITS SC (12:04)
--- NOTE | 2024-01-02 13:07 | W.PN.HOSP.TC ---
Addendum entered and electronically signed by Tulio Tucker MD 01/03/24 15:27:
[id number]
Original Note:
Today's Communication/Plan
-
Will Rx cefdinir x 7 days total for Ecoli although asymptomatic bacteruria
Inc ventricular rate to 50
F/u Dr. Samuels outpatient
Assessment / Plan
Assessment / Plan
Physical Exam
General: Well Developed, Well Nourished and No Apparent Distress
HEENT: Normocephalic and Anicteric
Respiratory: Other (coarse lung sounds to bases, on RA, no respiratory distress)
Cardiac: Regular Rhythm and Murmur (II/ systolic murmur)
Musculoskeletal: Edema (mild BLE edema)
Skin: Warm and Dry
Neuro: AO x 3
Psych: Calm
Syncope, possibly related to worsening aortic stenosis
-Consult Cardiology
-Could have been vagal related to bending and perhaps straining to reach mail
- Echocardiogram�increase PA pressures although no other significant abnormalities
� Increased ventricular rate on device - increased to 50
-�F/u Dr. Samuels a 14-28 day monitor to look for very rare pacer malfunction.
� Orthostatics negative
�Continue to monitor on telemetry
Chronic HFpEF
-Patient reports not taking diuretics since (December 27)
-torsemide 20mg PO Daily - back on reg diuretics prn and can titrate as needed outpatient with his Sewing Teacher
-Monitor Is&Os and Daily Weights
Coronary Artery Disease s/p CABG
-Stable
Paroxysmal Atrial Fibrillation
-Continue Xarelto for anticoagulation
-Continue Toprol XL for rate control
Hyperlipidemia
-Continue simvastatin
Diabetes Mellitus, Type II - Diet Controlled
-Continue diabetic diet
-Monitor sugars
CKD Stage IIIA
-Monitor creatinine
#Asymptomatic bacteruria
-no symptoms and straight caths
-despite this, 100,000 CFU E-Coli
-Will rx on 7 days of cefdinir
DVT proph: Xarelto
Code Status: Full Code
More than 30 minutes spent in discharge including
Final examination of the patient
Summarizing hospital stay
Instructions for continuing care to all relevant caregivers
Preparation of discharge records, prescriptions, and referral forms
Total time spent (35 in minutes):
Anticipated Discharge: Today
Subjective/Interval History
-
Date of Service: January 02, 2024
no acute events
Objective Data
-
Labs:
Laboratory Results
01/02/24
08:15
WBC 9.5
Hgb 11.0 L
Hct 32.7 L
Plt Count 145
Sodium 136
Potassium 4.1
Chloride 103
Carbon Dioxide 27
BUN 33 H
Creatinine 1.1
Glucose 132 H
Calcium 9.5
Vital Signs:
Vital Signs
Temp Pulse Resp BP Pulse Ox
97.7 F 63 20 143/70 98
01/02/24 11:23 01/02/24 11:23 01/02/24 11:23 01/02/24 11:23 01/02/24 11:23
I&O
01/01/24 01/02/24 01/03/24
06:59 06:59 06:59
Intake Total 120 / 120 740 / 740
Balance 120 / 120 740 / 740
Review of Systems
-
History Source: Patient
All other systems: Reviewed and negative
Physical Exam
-
General: Well Developed, Well Nourished and No Apparent Distress
HEENT: Normocephalic and Atraumatic
Respiratory: Clear to Auscultation; Negative Wheezes or Rhonchi
Cardiac: Regular Rhythm and S1/S2; Negative Murmur
GI: Soft, Nontender, Nondistended and Normal Bowel Sounds
Musculoskeletal: No Clubbing, No Cyanosis and No Edema
Skin: Warm
Neuro: Awake, Alert, Oriented and AO x 3
Hematologic / Lymphatic: No Lymphadenopathy
Data Reviewed
-
Diagnostic Radiology: Image personally visualized and interpreted and Report Reviewed by me
CT Scan: Image personally visualized and interpreted and Report Reviewed by me
Labs: Labs Reviewed by me
--- NOTE | 2024-01-02 13:16 | W.DS.TRANS ---
DC Summary - Tax Associate Attorney
-
Discharge Instructions:
Discharge Diagnosis/Procedures Unexplained Syncope
Asymptomatic Bacteruria
Diet Low Cholesterol,Low Fat,Restrict fluids to 48 oz
Activity As tolerated
Instructions:
Stand-Alone Forms:
Changes to Home Medications: Yes
Discharge Medications:
DC Medications w/original date entered in [facility]
metoprolol succinate 25 mg tablet,extended release 24 hr (Toprol XL) 25 mg PO DAILY Blood pressure 01/11/19
ixhdzony-iil-klvbr acid 0.4 mg-lycopene 300 mcg-lutein 250 mcg tablet (Centrum Silver) 1 ea PO DAILY Supplement 01/11/19
simvastatin 20 mg tablet 20 mg PO DAILY High cholesterol 01/11/19
rivaroxaban 15 mg tablet (Xarelto) 15 mg PO DAILY Blood clot prevention/tx 02/13/23
tramadol 50 mg tablet 50 mg PO TID PRN Pain 02/13/23
vibegron 75 mg tablet (Gemtesa) 75 mg PO DAILY Overactive bladder 02/13/23
acetaminophen 325 mg tablet 650 mg PO Q4HPRN PRN mild pain/PEÑA/temp> 100.4F #0 tabs 02/15/23
torsemide 20 mg tablet 20 mg PO .4 X PER WEEK PRN w/ edema 12/31/23
cefdinir 300 mg capsule 300 mg PO BID 5 days #10 caps 01/02/24
Home Medication Changes
cefdinir 300 mg capsule 300 mg PO BID 5 days #10 caps 01/02/24
Pending Results: No
[2024-01-02] MEDS: STERILE WATER FOR INJECTION 10 ML IV (13:22)
[2024-01-02] MEDS: ROCEPHIN 1000 MG IV (13:22)
== END 2024-01-02 14:06 | disposition home or self-care (01) ==
LOC: 4 WEST ACU 19:23
PROVIDERS: Emergency Medicine; Physician Assistant Medical; ADMITTING PHYSICIAN Internal Medicine; ATTENDING PHYSICIAN Internal Medicine; EMERGENCY PHYSICIAN Emergency Medicine; FAMILY PHYSICIAN Family Medicine; OTHER PHYSICIAN Internal Medicine Cardiovascular Disease
DX: I35.0 Nonrheumatic aortic (valve) stenosis (principal); R55 Syncope and collapse; R06.02 Shortness of breath; R82.71 Bacteriuria; B96.20 Unspecified Escherichia coli [E. coli] as the cause of diseases classified elsewhere; D72.829 Elevated white blood cell count, unspecified; N18.31 Chronic kidney disease, stage 3a; I13.0 Hypertensive heart and chronic kidney disease with heart failure and stage 1 through stage 4 chronic kidney disease, or unspecified chronic kidney disease; E11.22 Type 2 diabetes mellitus with diabetic chronic kidney disease; E11.40 Type 2 diabetes mellitus with diabetic neuropathy, unspecified; I25.10 Atherosclerotic heart disease of native coronary artery without angina pectoris; E78.00 Pure hypercholesterolemia, unspecified; I50.32 Chronic diastolic (congestive) heart failure; I48.0 Paroxysmal atrial fibrillation; N40.0 Benign prostatic hyperplasia without lower urinary tract symptoms; I45.10 Unspecified right bundle-branch block; G89.29 Other chronic pain; J98.4 Other disorders of lung; N32.81 Overactive bladder; Z85.46 Personal history of malignant neoplasm of prostate; Z92.3 Personal history of irradiation; Z87.442 Personal history of urinary calculi; Z95.1 Presence of aortocoronary bypass graft; Z95.0 Presence of cardiac pacemaker; Z87.19 Personal history of other diseases of the digestive system; Z79.01 Long term (current) use of anticoagulants
CPT/HCPCS: 93288; 70450; 71046; 80048; 80053; 81003; 81015; 82962; 83036; 83605; 83735; 83880; 84443; 84484; 85025; 85027; 85610; 87040; 87077; 87086; 87186; 93005; 93306; 97162; 97166; 99285; G0378

== ENCOUNTER 2024-05-15 06:04 | Day surgery (SDC) | payer OTHER, SELFPAY ==
[2024-05-15] VITALS (11 sets, daily range): BP systolic 122–169; BP diastolic 65–103
[2024-05-15 06:52] LABS: Glucose - Point of Care 169 mg/dl (70-99)
--- NOTE | 2024-05-15 09:28 | ITS.CL.PACE ---
Handle [facility]er - Pacemaker Implant
Pacemaker Implant
Procedure Report:
Date of Procedure: May 15, 2024
Patient : 1935
Procedure: Atrial lead implantation and generator change
Indication: Generator VANDANA as well as nonfunctioning atrial lead and pacemaker syndrome
�
Implants:�
Pulse Generator: Medtronic; Model# RV DR 01; SN: [id number]. Implanted today
RA Lead: Medtronic; Model# 4574; SN: [id number] implanted today
RV Lead: Medtronic; Model# 5086 MRI; SN: [id number] implanted 2010
Explants:
Medtronic device type: MRI sure dual-chamber pacemaker generator implanted June 06, 2011
Right atrial lead capped In the pocket: Medtronic model #5086 MRI 45 cm serial number [id number] implanted 2010
�
Technique: A time out was performed. The procedure site was identified. The subclavian was demonstrated to be patent via venogram. The patient was anesthetized by the anesthesia service. Preoperative sedation was administered. The patient was
prepped and draped in the usual fashion. Local anesthetic was applied to the left prepectoral subcutaneous tissue. A 3 inch incision was made 2.5 inches below the left clavicle. A subcutaneous pocket was created with blunt and sharp dissection and
hemostasis controlled with Bovie cautery. The left axillary vein was accessed within the pocket without difficulty. Hemostasis was excellent. The leads were introduced with 7 Fr hemostatic peel away introducer sheaths. There was extreme tortuosity
of the SVC/RA junction and the 7 Bangladeshi short sheath was upgraded over a [employer] wire to a 7 Bangladeshi long sheath and after the tip of the sheath was demonstrated in the right atrium the new atrial lead was delivered. The atrial lead was placed
in the right atrial appendage. Once the new lead was placed the chronic generator was removed from the field and the old atrial lead was capped and placed in the pocket. 10 volt pacing did not capture the diaphragm. The leads were secured to the
pectoralis muscle and fascia. The leads were appropriately attached to the device. The pocket was irrigated with antibiotic solution. The device and leads were placed in the pocket. The incision was closed in three layers with absorbable suture. The
estimated blood loss was minimal. There were no complications.��
Fluoroscopy: 5.3 minutes and 15.89 mGy
Lead Analysis:
RA lead: P: 2.0 mV; Threshold: 1.3 V @ 0.5� ms; Impedance: 399 ohms.
RV lead: R: 2.1 mV; Threshold: 1.25 V @ 0.5� ms; Impedance: 399 ohms.
�
Final Programming: AAIR�DDDR 6130 beats minute
�
Conclusion: Uncomplicated Medtronic pacemaker implant.
�
Recommendation: Routine post pacemaker care.
�
[2024-05-15 10:26] LABS: Glucose - Point of Care 229 mg/dl (70-99)
[2024-05-15] MEDS: TOPROL XL 25 MG PO (10:44)
--- NOTE | 2024-05-15 12:45 | W.PN.UPDATE ---
Update Note
Progress Note Update
Pt seen post pacer generator change with new RA lead placement. Left ACW w/aquacel dressing CDI, no ht/bleeding. Post EKG APaced w/RBBB, PVCs, 60s. Post CXR w/stable lead position, no pneumothorax. Activity limitations reviewed w/pt and . Hold
xarelto post procedure and will resume on Thursday 05/17 in AM. Incision check next week at [facility] and follow with Dr. Samuels thereafter. Home today after 2nd dose abx, and if device site/tele remain stable.
[2024-05-15] MEDS: ANCEF 5 IV (13:09)
== END 2024-05-15 13:30 | disposition home or self-care (01) ==
LOC: CATH 06:04
PROVIDERS: ATTENDING PHYSICIAN Internal Medicine Cardiovascular Disease; FAMILY PHYSICIAN Family Medicine; OTHER PHYSICIAN Internal Medicine Cardiovascular Disease
DX: Z45.010 Encounter for checking and testing of cardiac pacemaker pulse generator [battery] (principal); I49.5 Sick sinus syndrome; I45.10 Unspecified right bundle-branch block; Z79.01 Long term (current) use of anticoagulants
CPT/HCPCS: 33206; 33233; 71045; 82962; 93005; C1785; C1892; C1898; Q9967

== ENCOUNTER 2024-07-11 23:57 | Emergency (ER) | payer OTHER, SELFPAY ==
[2024-07-12 00:07] VITALS: BP 140/74
[2024-07-12 00:31] VITALS: BMI 27.0
[2024-07-12 01:15] VITALS: BP 121/67
--- NOTE | 2024-07-12 02:39 | ED.GENMED ---
History of Present Illness
General
Chief Complaint: Post Operative Problem(s)
Source: patient and spouse
Time Seen by Provider: 07/12/24 00:25
History of Present Illness
History of Present Illness:
88-year-old male who presents with persistent bleeding to his right upper extremity. The patient had a Mohs surgery. He is noted to be on Xarelto and he did not hold any of his medications prior to the surgery. He was not advised to. The patient
states he then noticed dressings were saturated. Patient denies any other complaints except that yesterday he cut his left index finger and wanted that looked at as well. No vomiting or chest pain. No shortness of breath
Past History
Past History
ED Past Medical History: Arrthythmia (Paroxysmal atrial fibrillation), CAD, HTN, Hypercholesterolemia, NIDDM, Other (Diverticulosis, GI bleed March 2015) and Other (kidney stones)
ED Past Surgical History: Cardiac (pacer, CABG x4)
Social History
Tobacco: Non-smoker
Alcohol: None
Drug: None
Personal:
Living: with family
Employment: Retired
Family History
Family History: Other (Noncontributory)
Phy Exam
Physical Exam
Physical Exam:
CONSTITUTIONAL Vital signs reviewed, Patient alert and oriented to person, place and time. Well-appearing
HEAD atraumatic, normocephalic.
EYES eyelids normal to inspection, Extraocular muscles intact, Conjunctiva normal, Sclera normal.
NECK normal range of motion, Trachea midline, no jugular venous distention.
RESP no respiratory distress
BACK No obvious deformities
UPPER EXTREMITY Gross Range of motion normal, gross motor strength normal. Right upper extremity dressings are saturated in blood. There is blood dripping down onto the bed. Dressings were removed and noted is approximately 5 to 6 cm wound with
stitches in place to the right upper extremity at the right deltoid area. There is active bleeding noted from the middle of the wound. Left index finger has a proximately 1.5 cm laceration laterally with minimal active oozing of blood
LOWER EXTREMITY Gross range of motion normal, Gross motor strength normal
NEURO Speech normal, No focal motor deficits include, [place] coma scale 15, Memory normal, Cranial Nerves intact to screening exam.
SKIN Skin warm, dry, and normal in color.
PSYCHIATRIC Patient oriented to person place and time, Normal affect.
Course
Vital Signs
Initial and Last Documented VS:
Initial Vital Signs
Temp Pulse Resp BP Pulse Ox
97.6 F 62 16 140/74 99
07/12/24 00:07 07/12/24 00:07 07/12/24 00:07 07/12/24 00:07 07/12/24 00:07
Last Documented Vital Signs
Temp Pulse Resp BP Pulse Ox
97.6 F 62 18 146/66 99
07/12/24 00:07 07/12/24 03:00 07/12/24 03:00 07/12/24 03:00 07/12/24 03:00
Procedures
Laceration Closure
Right Arm:
Status of Wound: clean
Size of Wound in cm: 6
Anesthesia: 1% Lidocaine with epi
Additional information:
4-0 Ethilon suture used in wlztkt-bo-tiaic hemostatic stitch was placed to the center of the wound where the bleeding was occurring. There was good resolution of the active bleeding with hemostasis.
MDM/Problems Addressed
MDM/Problems Addressed:
Postoperative hemorrhage
*Pulse Oximetry
Patient hypoxic: no
*Critical Care Note
Total Time (30-74mins, 75-104mins- exclusive of procedures): Not Applicable
Data Reviewed
Source: patient and spouse
Patient Management
Escalation/DeEscalation of care consider admission/obs:
Hemostatic stitch placed and hemostasis achieved. Left index finger dressed and no further bleeding
ED Attending Note
-
Portions of this chart may have been created with voice recognition software.� Occasional wrong word or��sound alike� substitutions may have occurred due to the inherent limitations of voice recognition software.
Discharge Plan
Departure
Patient Disposition: Home (Routine Discharge)
Date of Disposition: 07/12/24
Time of Disposition: 02:40
Patient with high blood pressure during this ER visit?: No
Discharge Problem:
Post-operative hemorrhage
Instructions: Bleeding After Surgery
Prescriptions:
No Action
simvastatin 20 MG tablet
20 mg PO DAILY
metoprolol succinate [Toprol XL] 25 MG tablet extended release 24 hr
25 mg PO DAILY@1400
Centrum Silver 1 EACH tablet
1 ea PO DAILY
Xarelto 15 mg Tablet
15 mg PO DAILY
tramadol 50 mg Tablet
50 mg PO TIDPRN PRN (Reason: Pain)
Gemtesa 75 mg Tablet
75 mg PO DAILY
acetaminophen 325 mg Tablet
650 mg PO Q4HPRN PRN (Reason: mild pain/PEÑA/temp> 100.4F) Qty: 0 0RF
torsemide 20 mg Tablet
20 mg PO .5X PER WEEK PRN (Reason: w/ edema)
Referrals:
Pranav Matos MD [Family Provider] -
Activity Restrictions/Additional Instructions:
Please do not take your Xarelto tomorrow. Please change her dressings on Monday if they remain dry. Please see your surgeon and follow-up as planned. Tomorrow, please be sure to make your surgeon aware of your bleeding and your emergency
department visit
Interventions
Interventions:
*Risk Screen - Suicide Last Done: 07/12/24 00:07
*General Assessment Last Done: 07/12/24 00:24
*Neglect/Abuse Screening Last Done: 07/12/24 00:07
ED- Fall Risk Assessment Last Done: 07/12/24 00:24
*ED COVID-19 Vaccine History Last Done: 07/12/24 00:07
*Nursing Disposition Last Done: 07/12/24 03:00
ED-Skin Assessment Last Done: 07/12/24 00:24
Discharge Date and Time
Discharge Date/Time: 07/12/24 03:00
Print Language: SIER[place] LEONEAN
[2024-07-12 03:00] VITALS: BP 146/66
== END 2024-07-12 03:00 | disposition home or self-care (01) ==
LOC: EMR 23:57
PROVIDERS: EMERGENCY PHYSICIAN Emergency Medicine; FAMILY PHYSICIAN Family Medicine
DX: L76.22 Postprocedural hemorrhage of skin and subcutaneous tissue following other procedure (principal); S61.211A Laceration without foreign body of left index finger without damage to nail, initial encounter; W45.8XXA Other foreign body or object entering through skin, initial encounter; I48.0 Paroxysmal atrial fibrillation; I25.10 Atherosclerotic heart disease of native coronary artery without angina pectoris; I10 Essential (primary) hypertension; E78.00 Pure hypercholesterolemia, unspecified; E11.9 Type 2 diabetes mellitus without complications; Z79.01 Long term (current) use of anticoagulants; Z87.442 Personal history of urinary calculi; Z95.1 Presence of aortocoronary bypass graft
CPT/HCPCS: 99282; 12002

== ENCOUNTER 2024-07-16 17:40 | Emergency (ER) | payer OTHER, SELFPAY ==
[2024-07-16 17:42] VITALS: BP 137/70
[2024-07-16 18:17] LABS: % Basophils 0.7 % (0-2); % Eosinophils 2.4 % (0-6); % Immature Granulocytes 0.3 % (0-0.5); % Lymphocytes 21.1 % (20.5-51.1); % Monocytes 13.3 % (1.7-9.3); % Neutrophils 62.2 % (42.2-75.2); Absolute Basophils 0.1 10^3/uL (0-0.2); Absolute Eosinophils 0.2 10^3/uL (0-0.7); Absolute Lymphocytes 1.6 10^3/uL (1.2-3.4); Absolute Neutrophils 4.8 10^3/uL (1.4-6.5); Hematocrit 23.4 % (39.0-52.0); Hemoglobin 7.6 g/dL (13.0-18.0); Mean Corp Hgb Conc. 32.5 g/dL (33.0-37.0); Mean Corpuscular Hgb 30.6 pg (27.0-31.0); Mean Corpuscular Volume 94.4 fL (80.0-94.0); Mean Platelet Volume 10.3 fL (7.4-10.4); Nucleated Red Blood Cells % 0 % (-); Platelet Count 151 10^3/uL (130-400); Red Blood Cell Count 2.48 10^6/uL (4.70-6.10); Red Cell Dist. Width 15.6 % (11.5-14.5); White Blood Cell Count 7.6 10^3/uL (4.8-10.8)
[2024-07-16 18:22] LABS: APTT 41.6 Sec (23.4-35.0)
[2024-07-16 18:29] LABS: ALT (SGPT) 19 U/L (0-50); AST (SGOT) 30 U/L (17-59); Albumin 3.8 g/dl (3.5-5.0); Alkaline Phosphatase 125 U/L (38-126); Blood Urea Nitrogen 43 mg/dl (9-20); Calcium 8.9 mg/dl (8.4-10.2); Carbon Dioxide 23 mmol/L (22-30); Chloride 106 mmol/L (98-107); Glucose 196 mg/dl (70-99); Potassium 4.7 mmol/L (3.5-5.1); Sodium 141 mmol/L (135-145); Total Protein 6.5 g/dl (6.3-8.2); eGFR 48.65
[2024-07-16 20:58] VITALS: BP 173/117
--- NOTE | 2024-07-16 21:03 | ED.GENMED ---
History of Present Illness
General
Chief Complaint: Abnormal Lab Value
Source: patient and spouse
Exam Limitations: none
Time Seen by Provider: 07/16/24 20:32
History of Present Illness
History of Present Illness:
Patient presents with a low hemoglobin. Was seen 4 days ago with bleeding from a Mohs surgery site. Had been on Xarelto at that time. Significant bleeding. Discharged to follow-up. Patient had a lightheaded spell on Monday. Outpatient labs
earlier showed a hemoglobin of 5+. Sent in for evaluation. Patient denies rectal bleeding dark stool tarry stool. Bleeding to the right shoulder has come under control with only an occasional slight ooze. He has however continued his Xarelto.
Has some shortness of breath with exertion however this has been a chronic ongoing issue. May be slightly worse. Some slight lightheadedness at times
Past History
Past History
ED Past Medical History: Arrthythmia (Paroxysmal atrial fibrillation), CAD, HTN, Hypercholesterolemia, NIDDM, Other (Diverticulosis, GI bleed March 2015) and Other (kidney stones)
ED Past Surgical History: Cardiac (pacer, CABG x4)
Social History
Tobacco: Non-smoker
Alcohol: None
Drug: None
Personal:
Living: with family
Employment: Retired
Family History
Family History: Other (Noncontributory)
Review of Systems
Review of Systems
All Other Systems: Not applicable
Cardiac: Denies chest pain or syncope
ABD/GI: Denies bloody stools or black stools
Phy Exam
Physical Exam
Physical Exam:
GENERAL: Alert and oriented in no apparent distress
EYE: Orbits normal.
NECK: Supple
CARDIAC: Regular rate and rhythm with midsystolic murmur.
LUNGS: A few dry crackles. No distress
ABDOMEN: Soft, without focal tenderness or distention
NEUROLOGICAL: Alert and oriented , grossly non-focal
SKIN: Warm and dry, no rash or lesion, no discoloration, skin intact.
MUSCULOSKELETAL: Ecchymosis to the right upper arm. Hematoma. Various stages of healing. No active bleeding at this time. Minimal blood on the dressing. Areas of Band-Aids to the right arm with areas of ecchymosis
PSYCH: Normal and appropriate interaction.
Course
Orders/Labs/Results
Orders:
Orders
07/16/24 17:51
Electrocardiogram (*1) Urgent
Reason for Study: Shortness of Breath
EKG- Treatment ONCE
07/16/24 18:02
Type+Screen Urgent
Complete Blood Count/With Diff Urgent
Comprehensive Metabolic Panel Urgent
PTT Urgent
07/16/24 20:51
* Blood Bank Products Urgent
Blood Bank Products: *Packed RBC Leuko(PRBC's)
Quantity: 1
Transfuse Today: Yes
Reason: Anemia
IV Insert/Care/Rem.- Treatment PRN
Abnormal Lab Results
07/16/24
18:02
RBC 2.48 L 10^6/uL
(4.70-6.10)
Hgb 7.6 L g/dL
(13.0-18.0)
Hct 23.4 L %
(39.0-52.0)
MCV 94.4 H fL
(80.0-94.0)
MCHC 32.5 L g/dL
(33.0-37.0)
RDW 15.6 H %
(11.5-14.5)
Absolute Monos (auto) 1.0 H 10^3/uL
(0.1-0.6)
Monocytes % 13.3 H %
(1.7-9.3)
APTT 41.6 H Sec
(23.4-35.0)
BUN 43 H mg/dl
(9-20)
Creatinine 1.4 H mg/dL
(0.7-1.3)
Glucose 196 H mg/dl
(70-99)
Crossmatch IS Only See Detail
07/16/24 18:02
07/16/24 18:02
Vital Signs
Initial and Last Documented VS:
Initial Vital Signs
Temp Pulse Resp BP Pulse Ox
97.7 F 86 20 137/70 98
07/16/24 17:42 07/16/24 17:42 07/16/24 17:42 07/16/24 17:42 07/16/24 17:42
Last Documented Vital Signs
Temp Pulse Resp BP Pulse Ox
98.6 F 72 20 141/71 98
07/17/24 01:14 07/17/24 01:15 07/17/24 01:15 07/17/24 01:14 07/17/24 01:15
MDM/Problems Addressed
Differential Diagnosis Includes:
Patient with controlled bleeding from the Mohs surgery to the right upper arm. Symptomatic anemia. Recommended rectal exam although patient refused. However not describing black or tarry stools. Will give a unit of blood for symptomatic anemia.
Observe and discharge to follow-up. Recommended holding his Xarelto for 2 to 3 days. He will however discuss this with his chief safety officer
*Pulse Oximetry
Patient hypoxic: no
*Critical Care Note
Total Time (30-74mins, 75-104mins- exclusive of procedures): Not Applicable
Data Reviewed
Review of Other/Old Records Reveals: Labs and Other (Interrogation appears okay.)
Update Note
Update Note:
0200... Patient is remained stable. Nontoxic. Current plan is to discharge in the morning.
ED Attending Note
-
Portions of this chart may have been created with voice recognition software.� Occasional wrong word or��sound alike� substitutions may have occurred due to the inherent limitations of voice recognition software.
Discharge Plan
Departure
Patient Disposition: Home (Routine Discharge)
Date of Disposition: 07/17/24
Time of Disposition: 02:10
Patient with high blood pressure during this ER visit?: Yes
Discharge Problem:
Symptomatic anemia, Recent bleeding from Mohs surgery site
Instructions: Normocytic Normochromic Anemia (DC), BLOOD PRESSURE
Prescriptions:
No Action
simvastatin 20 MG tablet
20 mg PO DAILY
metoprolol succinate [Toprol XL] 25 MG tablet extended release 24 hr
25 mg PO DAILY@1400
Centrum Silver 1 EACH tablet
1 ea PO DAILY
Xarelto 15 mg Tablet
15 mg PO DAILY
tramadol 50 mg Tablet
50 mg PO TIDPRN PRN (Reason: Pain)
Gemtesa 75 mg Tablet
75 mg PO DAILY
acetaminophen 325 mg Tablet
650 mg PO Q4HPRN PRN (Reason: mild pain/PEÑA/temp> 100.4F) Qty: 0 0RF
torsemide 20 mg Tablet
20 mg PO .5X PER WEEK PRN (Reason: w/ edema)
Referrals:
UNKNOWN - PT DOES,NOT KNOW [Unknown Provider] -
Activity Restrictions/Additional Instructions:
Follow-up with your primary physician in the next few days
Recommended repeat blood count in 2 to 3 days
Return sooner with progression of symptoms, increased weakness fatigue, bleeding from the right shoulder site etc.
Also recommend close follow-up with your Mohs surgeon.
Interventions
Interventions:
*Risk Screen - Suicide Last Done: 07/16/24 17:42
*General Assessment Last Done: 07/16/24 23:25
*Neglect/Abuse Screening Last Done: 07/16/24 17:42
*ED COVID-19 Vaccine History Last Done: 07/16/24 22:39
Discharge Date and Time
Print Language: NICARAGUAN
[2024-07-16 21:46] VITALS: BP 127/94
[2024-07-16 21:47] VITALS: BP 127/94
[2024-07-16 22:09] VITALS: BP 137/64
[2024-07-16 23:00] VITALS: BP 137/83
[2024-07-17] VITALS (8 sets, daily range): BP systolic 124–153; BP diastolic 61–112
== END 2024-07-17 07:15 | disposition home or self-care (01) ==
LOC: EMR 17:40
PROVIDERS: Emergency Medicine; EMERGENCY PHYSICIAN Emergency Medicine; FAMILY PHYSICIAN Family Medicine
DX: D64.9 Anemia, unspecified (principal); L76.21 Postprocedural hemorrhage of skin and subcutaneous tissue following a dermatologic procedure; Y83.8 Other surgical procedures as the cause of abnormal reaction of the patient, or of later complication, without mention of misadventure at the time of the procedure; I10 Essential (primary) hypertension
CPT/HCPCS: 99285; 36430; 80053; 85025; 85730; 86850; 86900; 86901; 86920; 93005; P9016

== ENCOUNTER → 2024-07-25 14:45 | Outpatient (REF) | payer OTHER, SELFPAY | LOC: HWRAD 14:45 | PROVIDERS: ATTENDING PHYSICIAN Family Medicine | DX: M54.16 Radiculopathy, lumbar region (principal); M25.511 Pain in right shoulder | CPT/HCPCS: 72110; 73030 ==

== ENCOUNTER → 2024-08-12 10:22 | Outpatient (REF) | payer OTHER, SELFPAY | LOC: PET 10:22 | PROVIDERS: ATTENDING PHYSICIAN Internal Medicine Hematology & Oncology | DX: C61 Malignant neoplasm of prostate (principal) | CPT/HCPCS: 78815 ==

== ENCOUNTER 2024-11-24 01:43 | Inpatient (IN) | payer OTHER, SELFPAY ==
[2024-11-23] VITALS (11 sets, daily range): BP systolic 70–128; BP diastolic 42–82; BMI 26.4
[2024-11-23 17:34] LABS: Hematocrit 30.9 % (39.0-52.0); Hemoglobin 10.2 g/dL (13.0-18.0); Mean Corpuscular Hgb 30.5 pg (27.0-31.0); Mean Corpuscular Volume 92.5 fL (80.0-94.0); Mean Platelet Volume 11.5 fL (7.4-10.4); Platelet Count 104 10^3/uL (130-400); Red Blood Cell Count 3.34 10^6/uL (4.70-6.10); Red Cell Dist. Width 17.7 % (11.5-14.5); White Blood Cell Count 13.1 10^3/uL (4.8-10.8)
[2024-11-23 17:49] LABS: % Basophils 0.2 % (0-2); % Immature Granulocytes 0.6 % (0-0.5); % Lymphocytes 2.5 % (20.5-51.1); % Monocytes 8.4 % (1.7-9.3); % Neutrophils 88.3 % (42.2-75.2); Absolute Immature Granulocytes 0.1 10^3/uL (0-0.05); Absolute Lymphocytes 0.3 10^3/uL (1.2-3.4); Absolute Monocytes 1.1 10^3/uL (0.1-0.6); Absolute Neutrophils 11.6 10^3/uL (1.4-6.5); Nucleated Red Blood Cells % 0 % (-)
[2024-11-23 17:52] LABS: ALT (SGPT) 27 U/L (0-50); AST (SGOT) 41 U/L (17-59); Albumin 3.7 g/dl (3.5-5.0); Alkaline Phosphatase 115 U/L (38-126); Blood Urea Nitrogen 51 mg/dl (9-20); Calcium 8.5 mg/dl (8.4-10.2); Carbon Dioxide 20 mmol/L (22-30); Chloride 99 mmol/L (98-107); Glucose 203 mg/dl (70-99); Potassium 4.7 mmol/L (3.5-5.1); Sodium 130 mmol/L (135-145); Total Bilirubin 1.6 mg/dl (0.2-1.3); Total Protein 6.1 g/dl (6.3-8.2); eGFR 31.71
--- NOTE | 2024-11-23 20:45 | EDRN ---
Pt's relates he had a tooth extracted about 1 week ago. Pt fell early morning around 0200 while going into the bathroom. Pt uses a walker and says his legs felt weak and gave out. Pt fell against wall and pulled something off the
wall on way down. Pt denies head injury. pt was weak all day and later when had him get into the shower, pt sat in the chair in the shower and slumped backwards, no fall/loc. Pt says he just 'felt weak.' concerned pt has an
infection from tooth extraction and started him on clindamycin that she has for herself. Pt had first dose and another yesterday. Pt has had posterior neck pain x 2 months that radiates into posterior head causing a headache. Pt has been
lightheaded. Pt feels 'wiped out' says he usually exercises and lifts weights but is unable to do so anymore. Pt denies cp, sob, abd pain, n/v/d/c, fever/chills/cough, urinary symptoms, ill contacts. reports pt has had no cold symptoms.
[2024-11-23 20:51] LABS: COVID-19 Antigen Negative (Negative)
--- NOTE | 2024-11-23 22:20 | ED.GENMED ---
History of Present Illness
General
Chief Complaint: Weakness
Source: patient, spouse and family
Time Seen by Provider: 11/23/24 22:07
Nursing documentation reviewed up to this point in time: agreed with
History of Present Illness
History of Present Illness:
Pleasant 89-year-old male that presents to the emergency department with increased weakness. According to , he has been falling several times a day for the last few days. Patient had a dental extraction last week and has been weak since. On
Monday, patient fell and hit his head. states the weakness has increased since then. Patient does have a history of neuropathy but states that he does not think that this is contributing. He has a history of coronary artery disease but
states that he has had no chest pain. He does take Lasix for edema but states that he has not taken it for the last few days. His gave him some of her clindamycin prescription starting yesterday. He took 300 mg and then a dose of 150 every 4
hours while awake for the last 2 days.
Vital signs are stable. Patient not hypoxic
Nursing note reviewed. I agree with nursing documentation up to this point in time.
Home Meds and allergies reviewed.
NUMBER AND COMPLEXITY OF PROBLEMS ADDRESSED AT THE ENCOUNTER
� Chronic conditions affecting care: Back pain, neuropathy, coronary artery disease, hypertension, hyperlipidemia, pacemaker
� Acute Exacerbation and/or Progression of Chronic Illness:
� Differential Diagnosis includes:
AMOUNT AND/OR COMPLEXITY OF DATA TO BE REVIEWED AND ANALYZED
I performed an independent evaluation of the following and my interpretation is:
EKG: EKG shows ventricular paced rhythm rate of 81 normal intervals, normal axis.
Pulse Ox: Not Hypoxic
Photogrammetric Stereo Compiler: Paced sinus Rhythm
CT:
X-rays:
Ultrasound:
Laboratory Studies: 13.1 white blood cell count. Hemoglobin of 10.2 is improved from previous hemoglobin of 7.6. Sodium was 130 and low. Bicarb is 20 and low, BUN and creatinine are 51/2.0 which is worse than previous of 43
and 1.4 in July.
Other:
Review of other/old records:
Clinical information was obtained by an independent historian:
Prescriptions/Medications Considered but not given:
Further testing considered but not performed:
RISK OF COMPLICATIONS AND/OR MORBIDITY OR MORTALITY OF PATIENT MANAGEMENT
Social determinants of health affecting care: Good Social Support
Discussion with other providers:
Escalation of care including admission/observation vs risk of discharge considered: After being observed in the emergency department, patient is
CRITICAL CARE NOTE:
Total Time (exclusive of procedures):
Update:
Past History
Past History
ED Past Medical History: Arrthythmia (Paroxysmal atrial fibrillation), CAD, HTN, Hypercholesterolemia, NIDDM, Other (Diverticulosis, GI bleed March 2015) and Other (kidney stones)
ED Past Surgical History: Cardiac (pacer, CABG x4)
Social History
Tobacco: Non-smoker
Alcohol: None
Drug: None
Personal:
Living: with family
Employment: Retired
Family History
Family History: Other (Noncontributory)
Review of Systems
Review of Systems
Allergies reviewed?: Yes
Other source history: family
All Other Systems: ROS reviewed and negative except as documented in HPI and ROS
Constitutional: Reports fatigue
Neurological: Reports weakness
Psychiatric: Reports anxiety
Phy Exam
General Physical Exam
General Presentation: well appearing and no apparent distress
General Skin: warm and dry
General Habitus: normal
General Mental: alert
General Hydration: appears well hydrated
ENT Exam
ENT Exam: EOMI, pharynx normal, neck supple and normocephalic
Eye Exam
Eye Exam: PERRL, cornea clear and conjunctiva normal
Cardiovascular Exam
Cardiovascular Exam: regular rate/rhythm, no edema, no murmur and normal peripheral pulses
Pulmonary Exam
Pulmonary Exam: lungs clear, no respiratory distress, no rales, no crackles, no stridor, no wheezing and no cough
Breath Sounds: Rhonchi: left lower and right lower
Gastrointestinal Exam
Gastrointestinal Exam: normal bowel sounds, non tender, soft, no organomegaly, no pulsatile mass and non distended
Neurological Exam
Neurological Exam: alert, oriented x3, no motor deficits and speech normal
Musculoskeletal Exam
Musculoskeletal Exam: full ROM and no edema
Skin Exam
Skin Exam: normal color, warm/dry, no rash and no petechia
Psychiatric Exam
Psychiatric Exam: normal mood/affect
Scores
Heart Failure Risk
Heart Failure Risk Score: Yes
History of Stroke or TIA: No
History of intubation for respiratory distress: No
Heart rate on ED arrival >/= 110: No
SaO2 <90% on arrival on room air: No
HR >/=110 during 3min walk test (or too ill to perform test): Yes
ECG has acute ischemic changes: No
Urea >/=12mmol/L (BUN 33.6mg/dL): Yes
Serum CO2>/=35mmol/L: No
Troponin I or T elevated to [place] Level (0.4mg/dL): No
NT-proBNP >/=5,000ng/L (5,000pg/ml): Yes
HF Risk Score: 4
Admission Status: HIGH RISK 26.1% Consider SNF treatment or admission to hospital
Course
Orders/Labs/Results
Orders:
Orders
11/23/24 17:02
Electrocardiogram (*1) Urgent
Reason for Study: Fatigue / Weakness
EKG- Treatment ONCE
11/23/24 17:21
Complete Blood Count/With Diff Urgent
Comprehensive Metabolic Panel Urgent
11/23/24 20:26
COVID-19 Antigen Urgent
Source: Nasal Swab
Influenza A+B Rapid Molecular Urgent
TIMI Source: Nasal Swab
Specimen Description:
11/23/24 22:09
Urinalysis Reflex To Culture Urgent
11/23/24 22:20
CT Head W/o Iv Contrast Urgent
Comment:
Reason For Exam: fall with weaknes following
11/23/24 22:21
Add On- LAB Urgent
Tests Added?: probnp
11/23/24 22:26
0.9% Sodium Chloride 1000 ml [Nss] 1,000 ml IV 250 mls/hr
11/23/24 22:30
CR Chest - 2 Views Urgent
Comment:
Reason For Exam: weakness
11/23/24 22:41
NT-proBNP Urgent
Comment: ADDON
Troponin I Urgent
11/23/24 23:17
Bumetanide [Bumex] 1 mg IV NOW STA
Abnormal Lab Results
11/23/24
17:21
WBC 13.1 H 10^3/uL
(4.8-10.8)
RBC 3.34 L 10^6/uL
(4.70-6.10)
Hgb 10.2 L g/dL
(13.0-18.0)
Hct 30.9 L %
(39.0-52.0)
RDW 17.7 H %
(11.5-14.5)
Plt Count 104 L 10^3/uL
(130-400)
MPV 11.5 H fL
(7.4-10.4)
Abs Immat Gran (auto) 0.1 H 10^3/uL
(0-0.05)
Absolute Neuts (auto) 11.6 H 10^3/uL
(1.4-6.5)
Absolute Lymphs (auto) 0.3 L 10^3/uL
(1.2-3.4)
Absolute Monos (auto) 1.1 H 10^3/uL
(0.1-0.6)
Immature Gran % 0.6 H %
(0-0.5)
Neutrophils % 88.3 H %
(42.2-75.2)
Lymphocytes % 2.5 L %
(20.5-51.1)
Sodium 130 L mmol/L
(135-145)
Carbon Dioxide 20 L mmol/L
(22-30)
BUN 51 H mg/dl
(9-20)
Creatinine 2.0 H mg/dL
(0.7-1.3)
Glucose 203 H mg/dl
(70-99)
Total Bilirubin 1.6 H mg/dl
(0.2-1.3)
Total Protein 6.1 L g/dl
(6.3-8.2)
11/23/24 17:21
11/23/24 17:21
Vital Signs
Initial and Last Documented VS:
Initial Vital Signs
Temp Pulse Resp BP Pulse Ox
99.2 F 78 16 70/46 97
11/23/24 16:57 11/23/24 16:57 11/23/24 16:57 11/23/24 16:57 11/23/24 16:57
Last Documented Vital Signs
Temp Pulse Resp BP Pulse Ox
97.8 F 72 20 128/65 96
11/23/24 22:50 11/23/24 22:00 11/23/24 22:00 11/23/24 22:00 11/23/24 22:00
*Critical Care Note
Total Time (30-74mins, 75-104mins- exclusive of procedures): Not Applicable
ED Attending Note
-
Portions of this chart may have been created with voice recognition software.� Occasional wrong word or��sound alike� substitutions may have occurred due to the inherent limitations of voice recognition software.
Discharge Plan
Departure
Patient Disposition: Admit
Date of Disposition: 11/23/24
Time of Disposition: 23:19
Admit to: Telemetry
Presentation/result/management discussed w/ accepting MD/DO: Hospitalist
Discharge Problem:
CHF exacerbation, Weakness, Falls frequently, Acute renal insufficiency
Prescriptions:
No Action
simvastatin 20 MG tablet
20 mg PO DAILY
metoprolol succinate [Toprol XL] 25 MG tablet extended release 24 hr
25 mg PO DAILY@1400
Centrum Silver 1 EACH tablet
1 ea PO DAILY
Xarelto 15 mg Tablet
15 mg PO DAILY
tramadol 50 mg Tablet
50 mg PO TIDPRN PRN (Reason: Pain)
Gemtesa 75 mg Tablet
75 mg PO DAILY
acetaminophen 325 mg Tablet
650 mg PO Q4HPRN PRN (Reason: mild pain/PEÑA/temp> 100.4F) Qty: 0 0RF
torsemide 20 mg Tablet
20 mg PO .5X PER WEEK PRN (Reason: w/ edema)
Referrals:
Pranav Matos MD [Family Provider] -
Interventions
Interventions:
*Risk Screen - Suicide Last Done: 11/23/24 16:57
*General Assessment Last Done: 11/23/24 16:57
*Neglect/Abuse Screening Last Done: 11/23/24 17:53
ED- Fall Risk Assessment Last Done: 11/23/24 20:43
*ED COVID-19 Vaccine History Last Done: 11/23/24 16:57
ED- Cardiac Assessment Last Done: 11/23/24 20:43
ED- Neurological Assessment Last Done: 11/23/24 20:43
ED- Pulmonary Assessment Last Done: 11/23/24 20:43
Discharge Date and Time
Print Language: HUNGARIAN
[2024-11-23] MEDS: NSS 1000 IV (22:42)
--- NOTE | 2024-11-23 22:51 | EDRN ---
Pt bending L arm which stopped IVF multiple times. This RN inserted second IV site R forearm #[id number] and switched IVF from L ACF to this new site to facilitate infusion.
[2024-11-23 23:16] LABS: NT-proBNP 12600 pg/ml; Troponin I 0.023 ng/ml
[2024-11-23] MEDS: BUMEX 1 MG IV (23:34)
[2024-11-24] VITALS (12 sets, daily range): BP systolic 96–137; BP diastolic 43–91; PULSE 69–77; O2SAT 95; BMI 25.2
--- NOTE | 2024-11-24 01:09 | HPS.HSE ---
Family Physician
-
Family Physician: Pranav Matos
Chief Complaint
-
Weakness and falls
History of Present Illness
Is an 89-year-old male with past medical history of significant heart disease including nonrheumatic aortic valve stenosis, atrial flutter status post pacemaker, CHF, CKD, chronic ambulatory dysfunction, neurogenic bladder requiring intermittent
straight cath, and rbq-hevrswa-zlvfiuytu diabetes, pulmonary hypertension and orthostatic hypotension presenting to the emergency department weakness weakness after a fall 2 days ago.
Patient tells me that about 6 weeks ago he was increased on his dose of torsemide and was placed on Xarelto. He said he lost about 20 pounds going from 170 to 150 pounds. He has remained at 130 pounds since then. He reported that he had a fall 2
days ago. He felt lightheaded and then fell in his bathroom. He could not get up. Ultimately his spouse got him up and got him walking with a walker again. He denied any lower extremity swelling. He denied any orthopnea or PND. He denies any
palpitations. Denies any chest pain. Today he tried to go to ceremony but he was too weak and when his spouse returned she brought him to the emergency department. He reports mild chills but no fevers measured at home. No known sick contacts.
He denies any cough. He denies any rash. Patient reported that he had not taken torsemide in 2 days due to weakness and inability to straight cath himself. He denies any urinary symptoms.
In the ED he was afebrile, blood pressure was 115/58 with a pulse of 79 satting 96% on room air. His chest x-ray shows mild interstitial markings with some cardiomegaly, no effusion. He had a white count of 13.1 hemoglobin and platelets were
stable, electrolytes with within normal range except for a sodium of 130. BUN/creatinine were 51 and 2.0 respectively which has been a significant increase from his baseline October of 1.4. CT of the head was negative.
ECG shows a paced rhythm at rate of 81, troponin was 0.02, BNP was elevated at 12,600 which is markedly increased from his prior levels of 1999.
Medical History
Past Medical History
Past Medical History: Reports Arrhythmia (Atrial fibrillation status post pacemaker placement), CAD (He status post CABG), Cancer (History of prostate cancer status post radiation), CHF, HTN, NIDDM, Valvular Disease (Aortic stenosis) and Other
(Urinary retention, intermittent straight cath dependence)
Past Surgical History: Reports Cardiac (CABG x 5) and Orthopedic (Spinal fusion)
Social History
Tobacco: Non-smoker
Alcohol: None
Drug: None
Personal:
Living: With Family
Employment: Retired
Family History
Family History: Not pertinent
Allergies / Home Medications
Allergies reflects when Allergies were last updated in [facility].
Home Medications with original date entered in [facility]
Allergy/Medication List:
Allergies
Allergy/AdvReac Type Severity Reaction Status Date / Time
No Known Allergies Allergy Verified 11/23/24 21:06
Home Medications
metoprolol succinate 25 mg tablet,extended release 24 hr (Toprol XL) 25 mg PO DAILY@1400 Blood pressure 01/11/19
bmzzrikl-xjo-dzokq acid 0.4 mg-lycopene 300 mcg-lutein 250 mcg tablet (Centrum Silver) 1 ea PO DAILY Supplement 01/11/19
simvastatin 20 mg tablet 20 mg PO DAILY High cholesterol 01/11/19
rivaroxaban 15 mg tablet (Xarelto) 15 mg PO DAILY Blood clot prevention/tx 02/13/23
tramadol 50 mg tablet 50 mg PO TIDPRN PRN Pain 02/13/23
vibegron 75 mg tablet (Gemtesa) 75 mg PO DAILY Overactive bladder 02/13/23
acetaminophen 325 mg tablet 650 mg (2 x 325 mg) PO Q4HPRN PRN mild pain/PEÑA/temp> 100.4F #0 tabs 02/15/23
torsemide 20 mg tablet 20 mg PO .5X PER WEEK PRN w/ edema 12/31/23
Review of Systems
-
Constitutional: Reports Fatigue
EENT: Reports No Symptoms
Respiratory: Reports No Symptoms
Cardiac: Reports No Symptoms
Abdomen/GI: Reports No Symptoms
: Reports No Symptoms
Musculoskeletal: Reports Joint Pain
Skin: Reports No Symptoms
Neurological: Reports No Symptoms
Endocrine: Reports No Symptoms
Hematologic/Lymphatic: Reports No Symptoms
Psych: Reports No Symptoms
Physical Exam
Vital Signs
Vital Signs
Temp Pulse Resp BP Pulse Ox
97.8 F 79 15 115/58 96
11/23/24 22:50 11/24/24 00:00 11/23/24 23:33 11/24/24 00:00 11/24/24 00:00
Physical Exam
General: Well Developed, Appears in Distress and Pain
HEENT: NormoCephalic, Anicteric, Moist mucous membranes, Atraumatic and No Ptosis
Respiratory: Crackles
Cardiac: S1/S2 and Regular Rhythm
Breast: Deferred by me
GI: Soft, Non Tender, Non Distended and Normal Bowel Sounds
Rectal: Deferred by Provider
Genito-urinary: Clear Urine
Musculoskeletal: No Clubbing, No Cyanosis and No Edema
Skin: Warm
Neuro: AO x 3 and No Motor Deficits
Hematologic/Lymphatic: No Lymphadenopathy
Psych: Calm
Laboratory Results
-
11/23/24 17:21
11/23/24 17:21
Laboratory Results
Total Bilirubin 1.6 mg/dl (0.2-1.3) H 11/23/24 17:21
AST 41 U/L (17-59) 11/23/24 17:21
ALT 27 U/L (0-50) 11/23/24 17:21
Alkaline Phosphatase 115 U/L (38-126) 11/23/24 17:21
Troponin I 0.023 ng/ml 11/23/24 22:41
Data Reviewed
-
Diagnostic Radiology: Image Personally Visualized and interpreted
Medical Tests (Nuc Med, Echo, EKG etc): Image Personally Visualized and interpreted
Lab Data: Labs Reviewed by me
Old Records: Reviewed
Impression/Plan
-
IMPRESSION:
89-year-old who presents to the emergency department 2 days after a mechanical fall where he felt lightheaded and did hit his head on a vase in his bathroom. He has been having generalized aches and pains since then. States he has been feeling
sick since then but has no nausea vomiting or diarrhea. No lyssa fevers. No worsening shortness of breath orthopnea or PND. No increased lower extremity edema. He is chest x-ray does shows increased interstitial markings, he is BNP is elevated
to 12,000. He has not taken his torsemide in 2 days due to weakness and inability to straight cath himself. His p.o. intake has decreased. He reports a persistent 20 pound weight loss since 6 weeks ago after he was on a intensified diuretic
therapy he has not gained weight back. No fevers or chills. Leukocytosis here without any focal source of infection. COVID test was negative, influenza was negative. Urine is pending.
PLAN:
Weakness - Chronic intermittent falls. No clear etiology of his weakness. Suspect infectious but no obvious infectious source. He does straight catheterizations at home so suspect possible urine. Has .
- admit to telemetry
- follow up urine cultures
- bladders can and straight cath prn
- check procalcitonin
- hold iv fluids for now given possible chf ex with marked bnp elevation
- check orthostatics, if orthostatic will hold diuretics and give fluids, otherwise continue torsemide
CHF - Possible exacerbation given elevated bnp but no signs of overt overload last echo august ef 55-60%, 'aortic valve is thickened and calcified. Valvular excursion is mildly
restricted. Peak transaortic gradient 17 mmHg. Mean gradient is 10 mmHg. Calculated aortic valve area 1.1 to 1.2 cm2 compatible with the presence of moderate, low velocity aortic stenosis although this may be an overestimate of
the severity of the aortic stenosis.'
- in setting of falls and elevated bnp will repeat the echo
- daily weights and i/os
- given rising creatinine, will hold further torsemide for now
- continue metoprolol and jardiance
- cardiology consult
Urinary retention
- bladder scan protocol with intermittent straight cath
AFIB
- continue Xarelto and metoprolol
Renal dysfunction - BENJAMÍN on CKD, suspect hemodynamic versus outlet obstruction
- b/s as above with renal bladder u/s
- urine lytes and creatinine
- neph consult
PT eval
DVT PPx - on xarelto
Code status - Full Code
[2024-11-24 02:38] LABS: Urine Albumin 2+ (Neg - Trace); Urine Bilirubin Negative (Negative); Urine Character Slightly Cloudy (Clear); Urine Color Yellow; Urine Glucose 4+ (Negative); Urine Ketone Negative (Negative); Urine Leukocyte 1+ (Negative); Urine Nitrite Negative (Negative); Urine Occult Blood 4+ (Negative); Urine Urobilinogen Negative (Neg - 1+)
[2024-11-24 03:26] LABS: Urine Amorphous Seen; Urine Bacteria Many (Negative); Urine Squamous Cell >30 /LPF (Few); Urine White Cell >100 /HPF (0-5)
[2024-11-24 06:03] LABS: Creatine Phosphokinase 100 U/L (55-170); Magnesium 2.6 mg/dl (1.6-2.3)
[2024-11-24 06:04] LABS: Hematocrit 30.3 % (39.0-52.0); Mean Corpuscular Hgb 30.1 pg (27.0-31.0); Mean Corpuscular Volume 91.3 fL (80.0-94.0); Mean Platelet Volume 11.1 fL (7.4-10.4); Platelet Count 99 10^3/uL (130-400); Red Blood Cell Count 3.32 10^6/uL (4.70-6.10); Red Cell Dist. Width 17.7 % (11.5-14.5); White Blood Cell Count 12.1 10^3/uL (4.8-10.8)
--- NOTE | 2024-11-24 06:30 | PTCARENOTE ---
Pt. has a critical procalcitonin of 9.28, notified GUMARO Guadalupe, no further orders.
[2024-11-24 06:31] LABS: Procalcitonin 9.28 ng/ml (0.0-0.25)
[2024-11-24 06:35] LABS: TSH Reflex To Free T4 1.17 uIU/ml (0.47-4.68)
--- NOTE | 2024-11-24 06:52 | W.PN.UPDATE ---
Update Note
Progress Note Update
AM labs, critical value received: Procalcitonin 9.28. Ordered blood cultures x 2. Started antibiotic coverage with Ceftriaxone 1 g IV Q24H, to be adjusted as needed.
[2024-11-24 10:16] LABS: Urine Sodium 59 mmol/L (30-90)
[2024-11-24] MEDS: STERILE WATER FOR INJECTION 10 ML IV (10:52)
[2024-11-24] MEDS: LIPITOR 10 MG PO (10:52)
[2024-11-24] MEDS: ROCEPHIN 1000 MG IV (10:52)
[2024-11-24] MEDS: XARELTO 15 MG PO (10:54)
--- NOTE | 2024-11-24 11:02 | W.PN.UPDATE ---
Addendum entered and electronically signed by Kolby Gasca MD 11/24/24 13:26:
Check A1c. Sliding scale. Accu-Cheks
Original Note:
Update Note
Progress Note Update
Patient seen and examined at bedside. Admitted past midnight.
89-year-old male with past medical history of aortic stenosis, atrial flutter status post pacemaker, CKD, CHF, ambulatory dysfunction, neurogenic bladder requiring straight catheterization at home, diabetes mellitus, pulmonary hypertension came to
the hospital with ongoing weakness. Patient also reported to fall few days ago. Denies any chest pain however does have intermittent shortness of breath. UA with pyuria however does have a lot of squamous epithelial cells. Will follow urine
culture. Continue with antibiotics for now. Was given Bumex in the ED on admission. Will await for nephrology evaluation for diuresis. Continue with straight cath BID as he does at home. PT/OT. Chest x-ray with partial left loculated effusion.
Check ultrasound chest and if positive then we will consult IR for Thora. Echo tomorrow. Recheck BMP today
General: Well Developed, Appears in Distress and Pain
HEENT: Normocephalic, Anicteric, Moist mucous membranes, Atraumatic and No Ptosis
Respiratory: Crackles
Cardiac: S1/S2 and Regular Rhythm
GI: Soft, Non Tender, Non Distended and Normal Bowel Sounds
Musculoskeletal: No Edema
Neuro: AO x 3 and No Motor Deficits
Psych: Calm
[2024-11-24 11:38] LABS: Glucose - Point of Care 170 mg/dl (70-99)
[2024-11-24 12:48] LABS: ALT (SGPT) 26 U/L (0-50); AST (SGOT) 38 U/L (17-59); Albumin 3.5 g/dl (3.5-5.0); Alkaline Phosphatase 120 U/L (38-126); Blood Urea Nitrogen 51 mg/dl (9-20); Calcium 8.2 mg/dl (8.4-10.2); Carbon Dioxide 19 mmol/L (22-30); Chloride 97 mmol/L (98-107); Estimated Creatinine Clearance 28 ml/min; Glucose 150 mg/dl (70-99); Potassium 4.2 mmol/L (3.5-5.1); Sodium 128 mmol/L (135-145); Total Bilirubin 1.5 mg/dl (0.2-1.3); Total Protein 6.1 g/dl (6.3-8.2); eGFR 38.53
[2024-11-24] MEDS: NOVOLOG FLEXPEN-LOW RESISTANCE 1 UNITS SC ×2 (13:22→17:26)
[2024-11-24] MEDS: TOPROL XL 25 MG PO (13:23)
--- NOTE | 2024-11-24 14:02 | W.CON.NEPH ---
Consultation
-
Date/Time Consultation Requested: November 24, 2024 at 5 AM
Date/Time Consultation Performed: November 24, 2024 at 1 PM
Requesting Provider: Dr. Gomez
Performing Provider: Dr. Alonso Hall
Reason for Consultation: Acute kidney injury and hyponatremia
Medical History
-
Chief Complaint: Acute kidney injury
History of Present Illness:
9-year-old male with past medical history of significant heart disease including nonrheumatic aortic valve stenosis, atrial flutter status post pacemaker, CHF, CKD, chronic ambulatory dysfunction, neurogenic bladder requiring intermittent straight
cath, and acp-khnisfi-ifmxjyptn diabetes, pulmonary hypertension and orthostatic hypotension presenting to the emergency department weakness weakness after a fall 2 days ago.
6 to 8 wks weeks ago he was increased on his dose of torsemide and was placed on Xarelto. He said he lost about 20 pounds going from 170 to 150 pounds..
Renal consult for acute kidney injury with a creatinine of 1.5 and hyponatremia of 130..
He was given Bumex in the emergency room.
Repeat laboratories show a serum sodium of 128 and creatinine now 1.7
Past Medical History
significant heart disease including nonrheumatic aortic valve stenosis, atrial flutter status post pacemaker, CHF, CKD, chronic ambulatory dysfunction, neurogenic bladder requiring intermittent straight cath, and kaa-iezxzaa-hzflcmqgi diabetes,
pulmonary hypertension and orthostatic hypotension
Social History
Tobacco: Non-Smoker
Alcohol: None
Family History
No renal disease
Allergies / Home Medications
Allergy/AdvReac Type Severity Reaction Status Date / Time
No Known Allergies Allergy Verified 11/23/24 21:06
�Medication �Instructions �Recorded �Confirmed �Type
metoprolol succinate 25 mg 25 mg PO DAILY@1400 Blood pressure 01/11/19 11/24/24 History
tablet,extended release 24 hr
(Toprol XL)
yuyhtxii-kih-cijqa acid 0.4 1 ea PO DAILY Supplement 01/11/19 11/24/24 History
mg-lycopene 300 mcg-lutein 250 mcg
tablet (Centrum Silver)
simvastatin 20 mg tablet 20 mg PO DAILY High cholesterol 01/11/19 11/24/24 History
rivaroxaban 15 mg tablet (Xarelto) 15 mg PO DAILY Blood clot 02/13/23 11/24/24 History
prevention/tx
vibegron 75 mg tablet (Gemtesa) 75 mg PO DAILY Overactive bladder 02/13/23 11/24/24 History
acetaminophen 325 mg tablet 650 mg (2 x 325 mg) PO Q4HPRN PRN 02/15/23 11/24/24 Rx
mild pain/PEÑA/temp> 100.4F #0 tabs
torsemide 20 mg tablet 20 mg PO .MOWEFRSA PRN w/ edema 12/31/23 11/24/24 History
empagliflozin 10 mg tablet 10 mg PO DAILY 11/24/24 11/24/24 History
(Jardiance)
Review of Systems
-
No chest pain or shortness of breath
Physical Exam
Vital Signs
Vital Signs
Temp Pulse Resp BP Pulse Ox
98.0 F 75 18 102/62 97
11/24/24 11:26 11/24/24 11:26 11/24/24 11:26 11/24/24 11:26 11/24/24 11:26
Lab Results
WBC 12.1 10^3/uL (4.8-10.8) H 11/24/24 05:30
RBC 3.32 10^6/uL (4.70-6.10) L 11/24/24 05:30
Hgb 10.0 g/dL (13.0-18.0) L 11/24/24 05:30
Hct 30.3 % (39.0-52.0) L 11/24/24 05:30
Plt Count 99 10^3/uL (130-400) L 11/24/24 05:30
Sodium 128 mmol/L (135-145) L 11/24/24 11:47
Potassium 4.2 mmol/L (3.5-5.1) 11/24/24 11:47
Chloride 97 mmol/L (98-107) L 11/24/24 11:47
Carbon Dioxide 19 mmol/L (22-30) L 11/24/24 11:47
BUN 51 mg/dl (9-20) H 11/24/24 11:47
Creatinine 1.7 mg/dL (0.7-1.3) H 11/24/24 11:47
eGFR 38.53 11/24/24 11:47
Glucose 150 mg/dl (70-99) H 11/24/24 11:47
Calcium 8.2 mg/dl (8.4-10.2) L 11/24/24 11:47
Tbe-E-Lcjzadamopr Pept 49870 pg/ml 11/23/24 22:41
Albumin 3.5 g/dl (3.5-5.0) 11/24/24 11:47
Physical Exam
General no acute distress
HEENT no cephalic atraumatic extraocular muscle intact no scleral icterus no JVD neck supple
lungs clear to auscultation bilateral
heart regular S1-S2 positive
abdomen soft nontender positive bowel sounds
extremities no edema pulses present bilateral
Neurologically nonfocal alert and oriented x 3
Skin no lesions no abrasions no petechiae
Psych normal affect no bizarre behavior
Data Reviewed
-
Radiology: Image Personally Visualized and interpreted (No pulmonary congestion)
Labs: Labs Reviewed by me
Assessment/Plan
-
9-year-old male with past medical history of significant heart disease including nonrheumatic aortic valve stenosis, atrial flutter status post pacemaker, CHF, CKD, chronic ambulatory dysfunction, neurogenic bladder requiring intermittent straight
cath, and pum-bcnwkhu-ugebbftkd diabetes, pulmonary hypertension and orthostatic hypotension presenting to the emergency department weakness weakness after a fall 2 days ago.
Patient tells me that about 6 weeks ago he was increased on his dose of torsemide and was placed on Xarelto. He said he lost about 20 pounds going from 170 to 150 pounds.
Impression.
Acute on chronic kidney disease. Admitting creatinine 1.5 repeat labs 1.7 with a sodium of 130 down to 128.
Neurogenic bladder requiring self-catheterization.
History of CHF.= August 2024 ejection fraction 55 to 60% with aortic stenosis.
Anemia with thrombocytopenia
AAS status post PPM.
Plan.
Acuity of renal function likely hemodynamic concern for sepsis with leukocytosis and decreasing platelets. Blood pressure as low as 70 systolic . urinalysis shows infectious although patient does self catheterize could be a contaminant.
I would hold diuretics at this time.
Start IV fluids.
With the neurogenic bladder and acute kidney injury I suggest we place a Brasher catheter to monitor closely.
Renal ultrasound did not show any obstructive uropathy other than urinary retention in the setting of chronic neurogenic bladder.
Agree with antibiotics.
Panculture.
--- NOTE | 2024-11-24 15:05 | CM ---
CM reviewed chart, patient seen bedside with and son, initial assessment completed. Patient resides with his in a multiple story home, first floor set up, two steps to enter. Patient has a walker and cane at home, uses walker all of the
time. Patient history with [facility], denies SNF, discussed PT recommendations of [facility] and agreeable to referral to [facility], placed in [facility]. Patient PCP Pranav Matos, pharmacy [facility], confirms prescription coverage, most medications are delivered
through [facility]. CM will continue to follow for all discharge planning needs.
Plan; home with [facility]
[2024-11-24] MEDS: NSS 1000 IV (15:58)
[2024-11-24 16:50] LABS: Glucose - Point of Care 196 mg/dl (70-99)
--- NOTE | 2024-11-24 20:13 | CON.CAR ---
Consultation
Consultation Request
Date/Time Consultation Requested: 08/24/2025 at noon
Date/Time Consultation Performed: 08/1625 at 2000
Requesting Provider: Dr. Jonnathan Gasca
Performing Provider: Thor Ballesteros MD
Reason for Consultation: Weakness and falls
Medical History
-
Chief Complaint: Weakness, falls, dyspnea
History of Present Illness:
89-year-old man followed by Dr. Cory paniagua, with history of chronic HFpEF, orthostasis, paroxysmal atrial fibrillation, mild-moderate aortic stenosis, pacemaker with generator change and atrial lead revision in May 2024. History of flutter
ablation in 2011, history of CAD with CABG in 2001. Recently started on Xarelto and torsemide was increased, he lost 20 pounds, on , Monday and Monday he fell going into the bathroom and thinks he lost consciousness he then fell again in
the shower, he presented to the emergency department with findings as below. Blood pressure was initially 70. At present major issues are back pain, some dyspnea and generalized weakness with falls and possible syncope.
Past Medical History
Past Medical History: Arrhythmias (PAF, on Xarelto, history of atrial flutter ablation 2011, Medtronic pacemaker with atrial lead revision 2023), CAD (see cath report), CHF (HFpEF), HTN, Hypercholesterolemia, NIDDM, Valvular Disease (Mild- moderate
- see echo) and Other (Orthostatic hypotension, pulm HTN, neurogenic bladder)
Past Surgical History: Cardiac (CABG, see cardiac catheterization below) and Orthopedic (spinal fusion)
Social History
Tobacco: Non-Smoker
Alcohol: None
Drug: None
Personal:
Living: With Family
Employment: Retired (Worked in [place])
Family History
Family History: Reviewed & Not Pertinent
Allergies / Home Medications
Allergy/AdvReac Type Severity Reaction Status Date / Time
No Known Allergies Allergy Verified 11/23/24 21:06
�Medication �Instructions �Recorded �Confirmed �Type
metoprolol succinate 25 mg 25 mg PO DAILY@1400 Blood pressure 01/11/19 11/24/24 History
tablet,extended release 24 hr
(Toprol XL)
yrypfetg-ksf-resyx acid 0.4 1 ea PO DAILY Supplement 01/11/19 11/24/24 History
mg-lycopene 300 mcg-lutein 250 mcg
tablet (Centrum Silver)
simvastatin 20 mg tablet 20 mg PO DAILY High cholesterol 01/11/19 11/24/24 History
rivaroxaban 15 mg tablet (Xarelto) 15 mg PO DAILY Blood clot 02/13/23 11/24/24 History
prevention/tx
vibegron 75 mg tablet (Gemtesa) 75 mg PO DAILY Overactive bladder 02/13/23 11/24/24 History
acetaminophen 325 mg tablet 650 mg (2 x 325 mg) PO Q4HPRN PRN 02/15/23 11/24/24 Rx
mild pain/PEÑA/temp> 100.4F #0 tabs
torsemide 20 mg tablet 20 mg PO .MOWEFRSA PRN w/ edema 12/31/23 11/24/24 History
empagliflozin 10 mg tablet 10 mg PO DAILY 11/24/24 11/24/24 History
(Jardiance)
Review of Systems
-
All other systems: Negative unless noted (Major issues are back pain, mild dyspnea and weakness lightheadedness with fall/syncope as above some arthritic complaints,)
Physical Exam
Vital Signs
Temp Pulse Resp BP Pulse Ox
37.4 C 79 20 108/56 95
11/24/24 15:00 11/24/24 15:00 11/24/24 15:00 11/24/24 15:00 11/24/24 15:00
Lab Results
11/24/24 05:30
11/24/24 11:47
Troponin I 0.023 ng/ml 11/23/24 22:41
Xds-F-Hwofytpylqz Pept 67870 pg/ml 11/23/24 22:41
Physical Exam
General: Other (Elderly, chronically ill-appearing)
Respiratory: Crackles (Rare crackles)
Cardiac: Murmur (Soft aortic stenosis murmur) and JVD (Markedly elevated)
GI: Non Tender, Non Distended and Normal Bowel Sounds
Musculoskeletal: Edema (Trace)
Skin: Warm and Dry
Neuro: AO x 3
Psych: Calm
Impression / Plan
-
Impression:
Syncope, possibly related to volume depletion, recent 20 pound weight loss after increase in torsemide
HFpEF
History of CABG
Mild to moderate aortic stenosis
Paroxysmal atrial flutter status post atrial flutter ablation in 2011
Paroxysmal atrial fibrillation
Type 2 diabetes
Moderate pulmonary hypertension
Orthostatic hypotension
Neurogenic bladder
Chronic kidney disease
Medtronic pacemaker with recent lead revision
History of spinal fusion
Hypertension
Hypercholesterolemia
BENJAMÍN with concern for urosepsis
Echocardiogram August 2024: Borderline LVH, EF 55-60%, paradoxical septal motion, normal RV, borderline hypokinesis, pacing lead identified, mild left atrial enlargement, calcified and restricted aortic valve, peak gradient 17, mean gradient 10,
aortic valve area 1.1-1.2 cm2, trace-mild mitral regurgitation, MAC mild TR with pulmonary artery systolic pressure 55 mmHg
Cardiac catheterization January 2019: Mild left main tapering, mid LAD occluded, patent FELIX to LAD, patent vein graft to diagonal, very small ramus intermedius, 40% proximal circumflex, occluded OM 2, filling via patent vein graft, OM1 is very small,
dominant RCA, occluded proximal to PDA, PDA fills via widely patent vein graft with 70-80% ostial PDA and 80% stenosis of posterolateral jeopardizing flow to posterolateral, vein graft to posterolateral is occluded, EF 63%
Plan:
He presents with weakness and syncope likely related to volume depletion and hypotension in the setting of increased torsemide.
Unfortunately, he still has some evidence of volume overload with elevated neck veins, dyspnea, left pleural effusion and markedly elevated proBNP. It will be difficult to optimize his volume status without producing hypotension and BENJAMÍN.
For now he is receiving IV fluid. Will need to monitor carefully.
He is on ceftriaxone at this time. He remains anticoagulated with appropriate dosing for GFR.
We will continue to follow.
Data Reviewed
-
EKG: Tracing Personally Visualized and interpreted (Sinus rhythm with right bundle branch block)
Radiology: Image Personally Visualized and interpreted (Chest x-ray with cardiomegaly, mild blunting left CPA, pacer)
CT Scan: Report Reviewed by me (Head CT with atrophy and nonspecific white matter changes)
Ultrasound: Image Personally Visualized and interpreted (Small left effusion, 500 mL residual)
Medical Tests (Nuc Med, Echo etc): Report Reviewed by me
Labs: Labs Reviewed by me (White count is 12, hemoglobin is 10.0, BUN and creatinine are 51 and 1.7, in December 2023 creatinine was 1.1, troponin 0.023, proBNP 12,600, procalcitonin 9.28)
Old Records: Reviewed
Total Time Spent with Patient (in minutes): 75
--- NOTE | 2024-11-24 20:56 | W.PN.UPDATE ---
Update Note
Progress Note Update
Critical value received: Preliminary blood culture - gram stain of aerobic blood culture reveals gram negative bacilli. Pt currently on Ceftriaxone for coverage.
[2024-11-24 21:53] LABS: Glucose - Point of Care 184 mg/dl (70-99)
[2024-11-25] VITALS (8 sets, daily range): BP systolic 95–116; BP diastolic 42–72; PULSE 74–79; BMI 25.1; BMI 25.0
[2024-11-25] MEDS: NSS 1000 IV ×3 (02:13→22:51)
[2024-11-25 07:47] LABS: Glucose - Point of Care 128 mg/dl (70-99)
[2024-11-25] MEDS: LIPITOR 10 MG PO (08:32)
[2024-11-25] MEDS: ROCEPHIN 1000 MG IV (08:32)
[2024-11-25] MEDS: NOVOLOG FLEXPEN-LOW RESISTANCE SC ×2 (08:32→12:27)
[2024-11-25] MEDS: XARELTO 15 MG PO (08:33)
[2024-11-25] MEDS: STERILE WATER FOR INJECTION 10 ML IV (08:33)
[2024-11-25 09:19] LABS: % Basophils 0.3 % (0-2); % Eosinophils 0.2 % (0-6); % Immature Granulocytes 0.6 % (0-0.5); % Lymphocytes 12.5 % (20.5-51.1); % Monocytes 12.4 % (1.7-9.3); Absolute Immature Granulocytes 0.1 10^3/uL (0-0.05); Absolute Lymphocytes 1.3 10^3/uL (1.2-3.4); Absolute Monocytes 1.3 10^3/uL (0.1-0.6); Absolute Neutrophils 7.7 10^3/uL (1.4-6.5); Hematocrit 29.5 % (39.0-52.0); Hemoglobin 9.8 g/dL (13.0-18.0); Mean Corp Hgb Conc. 33.2 g/dL (33.0-37.0); Mean Corpuscular Hgb 30.1 pg (27.0-31.0); Mean Corpuscular Volume 90.5 fL (80.0-94.0); Mean Platelet Volume 11.3 fL (7.4-10.4); Nucleated Red Blood Cells % 0 % (-); Platelet Count 91 10^3/uL (130-400); Red Blood Cell Count 3.26 10^6/uL (4.70-6.10); Red Cell Dist. Width 17.5 % (11.5-14.5); White Blood Cell Count 10.4 10^3/uL (4.8-10.8)
--- NOTE | 2024-11-25 09:48 | W.PN.HOSP.TC ---
Today's Communication/Plan
-
Continue antibiotics
Await cultures
Echocardiogram
Assessment / Plan
Assessment / Plan
Gen-AAOx3, NAD
HEENT-NC, AT, anicteric, clear oral mm
Neck-supple
CV-reg, no M, +S1/S2
Lungs-clear B/L
Abd-soft, NT, ND
Ext-no edema
Musculoskeletal-no cyanosis, clubbing
Skin-warm and dry
Neuro-grossly non-focal
Psych-calm, cooperative
Shock -present on admission. Suspect multifactorial etiology including septic shock, hypovolemic shock, etc. Blood pressure improved with IV fluid support.
Possible syncope prior to admission, likely due to hypovolemia, shock.
Sepsis due to UTI -presentation with hypotension and possible septic shock. Shock resolved. Preliminary blood cultures show gram-negative bacilli. Urine culture pending. Continue empiric IV ceftriaxone. IV fluids. Suspect UTI and sepsis
related to self-catheterization due to neurogenic bladder.
Leukocytosis resolved.
BENJAMÍN -likely due to sepsis, shock, hypotension. Hold diuretics. Creatinine stable at 1.7.
Hyponatremia -129. Likely hypovolemic.
Acute thrombocytopenia - possibly due to sepsis. Monitor for now.
Chronic normocytic anemia -stable.
Elevated LFTs -suspect ischemic hepatitis due to shock.
Chronic heart failure preserved EF -stable. Diuretics on hold for BENJAMÍN, hypotension. Follow-up echocardiogram.
Paroxysmal atrial fibrillation -continue Xarelto.
DM2 without hyperglycemia -glucose 110 this morning. Hemoglobin A1c pending. He uses Jardiance at home. Hold Jardiance and use low resistance aspart scale.
Hyperlipidemia -simvastatin.
Mild/moderate aortic stenosis
Permanent pacemaker
CAD/CABG
Chronic orthostatic hypotension
Chronic neurogenic bladder -he self catheterizes twice daily at home. Recommend at least 3 times daily to completely empty bladder. Brasher catheter inserted this hospitalization.
Full code
Anticipated Discharge: > 48 hours
Subjective/Interval History
-
Date of Service: November 25, 2024
Patient seen and examined. Feeling better overall. No complaints.
Objective Data
-
Labs:
Laboratory Results
11/25/24
06:47
WBC 10.4
Hgb 9.8 L
Hct 29.5 L
Plt Count 91 L
Sodium Pending
Potassium Pending
Chloride Pending
Carbon Dioxide Pending
BUN Pending
Creatinine Pending
Glucose Pending
Calcium Pending
Total Bilirubin Pending
AST Pending
ALT Pending
Alkaline Phosphatase Pending
Vital Signs:
Vital Signs
Temp Pulse Resp BP Pulse Ox
98.3 F 69 16 109/63 97
11/25/24 07:00 11/25/24 07:00 11/25/24 07:00 11/25/24 07:00 11/25/24 07:00
I&O
11/24/24 11/25/24 11/26/24
06:59 06:59 06:59
Intake Total 1680 / 1680
Output Total 100 / 100 1650 / 1650
Balance -100 / -100 30 / 30
Review of Systems
-
History Source: Patient
All other systems: Reviewed and negative
[2024-11-25 09:51] LABS: ALT (SGPT) 53 U/L (0-50); AST (SGOT) 91 U/L (17-59); Alkaline Phosphatase 235 U/L (38-126); Blood Urea Nitrogen 45 mg/dl (9-20); Carbon Dioxide 19 mmol/L (22-30); Chloride 100 mmol/L (98-107); Estimated Creatinine Clearance 28 ml/min; Glucose 110 mg/dl (70-99); Sodium 129 mmol/L (135-145); Total Bilirubin 1.6 mg/dl (0.2-1.3); Total Protein 5.6 g/dl (6.3-8.2); eGFR 38.53
[2024-11-25 10:31] LABS: Glycohemoglobin (HgbA1c) 7.1 % (4.0-5.6)
[2024-11-25 12:27] LABS: Glucose - Point of Care 132 mg/dl (70-99)
[2024-11-25] MEDS: TOPROL XL 25 MG PO (13:15)
--- NOTE | 2024-11-25 14:47 | W.PN.NEPH.PH ---
Today's Communication / Plan
-
cotn IVF and follow labs
Assessment/Plan
-
9-year-old male with past medical history of significant heart disease including nonrheumatic aortic valve stenosis, atrial flutter status post pacemaker, CHF, CKD, chronic ambulatory dysfunction, neurogenic bladder requiring intermittent straight
cath, and mwf-bpcpdhq-ozfymdqbe diabetes, pulmonary hypertension and orthostatic hypotension presenting to the emergency department weakness weakness after a fall 2 days ago.
Patient tells me that about 6 weeks ago he was increased on his dose of torsemide and was placed on Xarelto. He said he lost about 20 pounds going from 170 to 150 pounds.
Impression.
Acute on chronic kidney disease. Admitting creatinine 1.5 repeat labs 1.7 with a sodium of 130 down to 128.
Neurogenic bladder requiring self-catheterization.
History of CHF.= August 2024 ejection fraction 55 to 60% with aortic stenosis.
Anemia with thrombocytopenia
AAS status post PPM.
Plan.
BENJAMÍN-likely prerenal with sepsis and also partially from obst with h/o retention
cr stable at 1.7, non oliguric with mattson chronic neurogenic bladder.
cont to hold diuretics at this time.
wt stable, cont IV fluids.
hyponatremia-likely from hypovolemia, stable monitor
abx per primary, possible Ecoli UTI and bacteremia
Bp stable
monitor labs
-
-
Date of Service: November 25, 2024
CC / HPI / ROS
-
Chief Complaint:
BENJAMÍN, hypoantremia
History of Present Illness:
cr stable at 1.7, sodium stable 129
wt no change
BP better
plt low 91k
Review of Systems:
feels well
no cp or osb
on RA, no n/v
Labs
-
Labs:
WBC 10.4 10^3/uL (4.8-10.8) 11/25/24 06:47
RBC 3.26 10^6/uL (4.70-6.10) L 11/25/24 06:47
Hgb 9.8 g/dL (13.0-18.0) L 11/25/24 06:47
Hct 29.5 % (39.0-52.0) L 11/25/24 06:47
Plt Count 91 10^3/uL (130-400) L 11/25/24 06:47
Sodium 129 mmol/L (135-145) L 11/25/24 06:47
Potassium 4.0 mmol/L (3.5-5.1) 11/25/24 06:47
Chloride 100 mmol/L (98-107) 11/25/24 06:47
Carbon Dioxide 19 mmol/L (22-30) L 11/25/24 06:47
BUN 45 mg/dl (9-20) H 11/25/24 06:47
Creatinine 1.7 mg/dL (0.7-1.3) H 11/25/24 06:47
eGFR 38.53 11/25/24 06:47
Glucose 110 mg/dl (70-99) H 11/25/24 06:47
Calcium 8.0 mg/dl (8.4-10.2) L 11/25/24 06:47
Byj-I-Mnzzqbmfjch Pept 25731 pg/ml 11/23/24 22:41
Albumin 3.0 g/dl (3.5-5.0) L 11/25/24 06:47
Physical Exam
-
Vital Signs:
Vital Signs
Temp Pulse Resp BP Pulse Ox
98.1 F 74 18 111/62 97
11/25/24 11:32 11/25/24 13:14 11/25/24 11:32 11/25/24 13:14 11/25/24 11:32
Cardiovascular:: Regular rate and rhythm
Respiratory:: Bilateral: CTA
Lung Excursion:: Normal
Abdomen:: Nontender and Soft
Extremity Edema:: None: Bilateral:
Mattson Catheter: Yes
[2024-11-25] MEDS: ZOFRAN 4 MG IV (16:35)
[2024-11-25] MEDS: TUMS EX (EXTRA STRENGTH) CHEWABLE TABLET 600 MG PO ×2 (16:35→20:42)
[2024-11-25 16:36] LABS: Glucose - Point of Care 152 mg/dl (70-99)
[2024-11-25] MEDS: NOVOLOG FLEXPEN-LOW RESISTANCE 1 UNITS SC (16:59)
--- NOTE | 2024-11-25 17:15 | W.PN.CARDCBS ---
Today's Communication / Plan
-
Intravenous fluid per nephrology.
Need to watch for volume overloaded, neck veins significantly elevated
Eventual restart of diuretic
Impression / Plan
-
Impression:
Syncope, possibly related to volume depletion, recent 20 pound weight loss after increase in torsemide
HFpEF
History of CABG
Mild to moderate aortic stenosis
Paroxysmal atrial flutter status post atrial flutter ablation in 2011
Paroxysmal atrial fibrillation
Type 2 diabetes
Moderate pulmonary hypertension
Orthostatic hypotension
Neurogenic bladder
Chronic kidney disease
Medtronic pacemaker with recent lead revision
History of spinal fusion
Hypertension
Hypercholesterolemia
BENJAMÍN with concern for urosepsis
Gram-negative bacteremia/urosepsis
Echocardiogram August 2024: Borderline LVH, EF 55-60%, paradoxical septal motion, normal RV, borderline hypokinesis, pacing lead identified, mild left atrial enlargement, calcified and restricted aortic valve, peak gradient 17, mean gradient 10,
aortic valve area 1.1-1.2 cm2, trace-mild mitral regurgitation, MAC mild TR with pulmonary artery systolic pressure 55 mmHg
Echocardiogram 11/25/2024: EF 55-60%, dilated and hypokinetic RV V, mild to moderate mitral regurgitation, mild aortic stenosis, moderate tricuspid regurgitation with severe pulmonary hypertension, 77 mmHg systolic
Cardiac catheterization January 2019: Mild left main tapering, mid LAD occluded, patent FELIX to LAD, patent vein graft to diagonal, very small ramus intermedius, 40% proximal circumflex, occluded OM 2, filling via patent vein graft, OM1 is very small,
dominant RCA, occluded proximal to PDA, PDA fills via widely patent vein graft with 70-80% ostial PDA and 80% stenosis of posterolateral jeopardizing flow to posterolateral, vein graft to posterolateral is occluded, EF 63%
Plan:
He looks much stronger today and states he feels much better.
Renal function is improved.
On appropriate treatment for urosepsis with bacteremia.It will be difficult to optimize volume status given CKD, BENJAMÍN, and orthostasis
Will likely need to restart diuretic soon.
Echo shows preserved LV function, mild aortic stenosis, and worsened pulmonary hypertension, possibly related to volume status.
Restart Jardiance when able
Progress Note - Specifications Writer
Subjective
Date of Service: November 25, 2024:
Patient feels much better, growing gram-negative rods in his blood has received ceftriaxone
Medications: Saline at 100 units an hour, metoprolol ER 25 mg daily, rivaroxaban 15 mg daily, atorvastatin 10 mg a day, ceftriaxone, insulin sliding scale
111/65, pulse 69, resp rate 18, afebrile, intake and output similar, weight is 70.3 kg, which is down 0.5 kg, Slightly jaundiced, lungs are clear, JVD is still markedly elevated, soft systolic murmur at base, abdomen benign, extremities without much
edema
White count is 10.4, hemoglobin is 9.8, platelets are 91, had been 104 on admission and normal in July, sodium 129, BUN/creatinine 45 and 1.7, creatinine was 2.0 on admission and 1.4 in July he has a left shift with bands, alk phos is 235, AST
and ALT are 91 and 53, bilirubin is 1.6
Gram-negative rods in blood, 2 of 2 bottles
proBNP was 12,600 at admission, troponin 0.023
Objective
Labs:
11/25/24 06:47
11/25/24 06:47
Labs
Hgb 9.8 g/dL (13.0-18.0) L 11/25/24 06:47
Hct 29.5 % (39.0-52.0) L 11/25/24 06:47
Plt Count 91 10^3/uL (130-400) L 11/25/24 06:47
Sodium 129 mmol/L (135-145) L 11/25/24 06:47
Potassium 4.0 mmol/L (3.5-5.1) 11/25/24 06:47
BUN 45 mg/dl (9-20) H 11/25/24 06:47
Creatinine 1.7 mg/dL (0.7-1.3) H 11/25/24 06:47
Glucose 110 mg/dl (70-99) H 11/25/24 06:47
Troponins
11/23/24
22:41
Troponin I 0.023
Vital Signs and I&O:
Vital Signs
Temp Pulse Resp BP Pulse Ox
36.8 C 72 20 110/60 98
11/25/24 15:00 11/25/24 15:00 11/25/24 15:00 11/25/24 15:00 11/25/24 15:00
Vital Signs
Temp Pulse Resp BP Pulse Ox
36.8 C 72 20 110/60 98
11/25/24 15:00 11/25/24 15:00 11/25/24 15:00 11/25/24 15:00 11/25/24 15:00
Intake & Output
11/23/24 11/24/24 11/25/24 11/26/24
07:59 07:59 07:59 07:59
Intake Total 1680 / 1680
Output Total 100 / 100 1650 / 1650
Balance -100 / -100 30 / 30
Physical Exam
Physical Exam
see above
--- NOTE | 2024-11-25 17:56 | PTCARENOTE ---
Pt c/o nausea and a sour stomach. Pt did vomit a small amount in the bathroom. Pt ordered Zofran 4mg IV and Tums prn. Both given as ordered with relief.
[2024-11-25 22:17] LABS: Glucose - Point of Care 181 mg/dl (70-99)
[2024-11-26 03:04] VITALS: BP 119/71
[2024-11-26 06:00] VITALS: BMI 25.2
[2024-11-26 06:25] VITALS: BMI 25.2
[2024-11-26 07:48] VITALS: BP 105/58; BP 120/59; BP 133/67; PULSE 72; PULSE 74
[2024-11-26 07:54] LABS: Glucose - Point of Care 140 mg/dl (70-99)
[2024-11-26 08:14] LABS: % Basophils 0.4 % (0-2); % Eosinophils 0.8 % (0-6); % Immature Granulocytes 0.9 % (0-0.5); % Lymphocytes 14.9 % (20.5-51.1); % Monocytes 11.7 % (1.7-9.3); % Neutrophils 71.3 % (42.2-75.2); Absolute Eosinophils 0.1 10^3/uL (0-0.7); Absolute Immature Granulocytes 0.1 10^3/uL (0-0.05); Absolute Lymphocytes 1.4 10^3/uL (1.2-3.4); Absolute Monocytes 1.1 10^3/uL (0.1-0.6); Absolute Neutrophils 6.7 10^3/uL (1.4-6.5); Hemoglobin 9.9 g/dL (13.0-18.0); Mean Corpuscular Hgb 30.1 pg (27.0-31.0); Mean Corpuscular Volume 91.2 fL (80.0-94.0); Mean Platelet Volume 11.1 fL (7.4-10.4); Nucleated Red Blood Cells % 0 % (-); Platelet Count 108 10^3/uL (130-400); Red Blood Cell Count 3.29 10^6/uL (4.70-6.10); Red Cell Dist. Width 17.4 % (11.5-14.5); White Blood Cell Count 9.3 10^3/uL (4.8-10.8)
[2024-11-26] MEDS: STERILE WATER FOR INJECTION 10 ML IV (08:28)
[2024-11-26] MEDS: LIPITOR 10 MG PO (08:28)
[2024-11-26] MEDS: XARELTO 15 MG PO (08:28)
[2024-11-26] MEDS: ROCEPHIN 1000 MG IV (08:28)
[2024-11-26] MEDS: NOVOLOG FLEXPEN-LOW RESISTANCE SC (08:28)
[2024-11-26 08:38] LABS: ALT (SGPT) 76 U/L (0-50); AST (SGOT) 103 U/L (17-59); Alkaline Phosphatase 339 U/L (38-126); Blood Urea Nitrogen 33 mg/dl (9-20); Calcium 8.3 mg/dl (8.4-10.2); Carbon Dioxide 19 mmol/L (22-30); Chloride 105 mmol/L (98-107); Estimated Creatinine Clearance 31 ml/min; Glucose 132 mg/dl (70-99); Potassium 4.3 mmol/L (3.5-5.1); Sodium 134 mmol/L (135-145); Total Bilirubin 1.4 mg/dl (0.2-1.3); Total Protein 5.7 g/dl (6.3-8.2); eGFR 44.78
--- NOTE | 2024-11-26 09:53 | W.PN.HOSP.TC ---
Addendum entered and electronically signed by Willy Torres DO 11/26/24 14:22:
Updated patient's on the phone. Stable for discharge.
Cleared for discharge by cardiology and nephrology.
DC Brashre catheter prior to discharge. Continue self-catheterization twice daily on discharge. Patient does void on his own somewhat as well. Follow-up with Dr. Love.
Follow-up with cardiology and PCP. BMP on Monday with PCP.
Continue teds compression stocking discharge for orthostatic hypotension.
Original Note:
Today's Communication/Plan
-
Can change to oral antibiotics
Assessment / Plan
Assessment / Plan
Gen-AAOx3, NAD
HEENT-NC, AT, anicteric, clear oral mm
Neck-supple
CV-reg, no M, +S1/S2
Lungs-clear B/L
Abd-soft, NT, ND
Ext-no edema
Musculoskeletal-no cyanosis, clubbing
Skin-warm and dry
Neuro-grossly non-focal
Psych-calm, cooperative
Shock -present on admission. Suspect multifactorial etiology including septic shock, hypovolemic shock, etc. Blood pressure improved with IV fluid support.
Possible syncope prior to admission, likely due to hypovolemia, shock.
E. coli sepsis due to UTI -presentation with hypotension and possible septic shock. Shock resolved. Blood culture noted. Urine culture mixed growth. Can change antibiotics to Keflex and treat for 14 days. Stop further IV fluids. Suspect UTI
and sepsis related to self-catheterization due to neurogenic bladder.
Leukocytosis resolved. Afebrile.
BENJAMÍN -likely due to sepsis, shock, hypotension. Hold diuretics. Creatinine improving, 1.5. Suspect creatinine back to baseline.
Hyponatremia - improving.
Acute thrombocytopenia - possibly due to sepsis. Improving.
Chronic normocytic anemia -stable.
Elevated LFTs -suspect ischemic hepatitis due to shock.
Chronic heart failure preserved EF -stable. Diuretics on hold for BENJAMÍN, hypotension. Echocardiogram shows LVEF 55 to 60%, dilated RV with reduced systolic function, mild to moderate MR, mild , moderate TR. Severe pulmonary hypertension.
Paroxysmal atrial fibrillation -continue Xarelto.
DM2 without hyperglycemia -glucose 132 this morning. Hemoglobin A1c 7.1%. He uses Jardiance at home. Hold Jardiance and use low resistance aspart scale.
Hyperlipidemia -simvastatin.
Mild/moderate aortic stenosis
Permanent pacemaker
CAD/CABG
Chronic orthostatic hypotension
Chronic neurogenic bladder -he self catheterizes twice daily at home. Recommend at least 3 times daily to completely empty bladder. Brasher catheter inserted this hospitalization.
Full code
Dispo -discharge when cleared by cardiology.
Anticipated Discharge: Within 24 hours
Subjective/Interval History
-
Date of Service: November 26, 2024
Patient seen and examined. No complaints.
Objective Data
-
Labs:
Laboratory Results
11/26/24
07:24
WBC 9.3
Hgb 9.9 L
Hct 30.0 L
Plt Count 108 L
Sodium 134 L
Potassium 4.3
Chloride 105
Carbon Dioxide 19 L
BUN 33 H
Creatinine 1.5 H
Glucose 132 H
Calcium 8.3 L
Total Bilirubin 1.4 H
AST 103 H
ALT 76 H
Alkaline Phosphatase 339 H
Vital Signs:
Vital Signs
Temp Pulse Resp BP Pulse Ox
97.9 F 81 19 119/71 98
11/26/24 07:49 11/26/24 03:04 11/26/24 07:49 11/26/24 03:04 11/26/24 07:49
I&O
11/25/24 11/26/24 11/27/24
06:59 06:59 06:59
Intake Total 1680 / 1680 1840 / 1840
Output Total 1650 / 1650 3050 / 3050
Balance -1210 / -1210
Review of Systems
-
History Source: Patient
All other systems: Reviewed and negative
[2024-11-26 10:58] VITALS: BP 118/60; BP 126/68; BP 131/65; BP 134/65; PULSE 70
[2024-11-26] MEDS: KEFLEX 500 MG PO (11:23)
[2024-11-26 11:38] VITALS: BP 110/69
[2024-11-26 11:50] LABS: Glucose - Point of Care 199 mg/dl (70-99)
[2024-11-26] MEDS: NOVOLOG FLEXPEN-LOW RESISTANCE 1 UNITS SC (12:05)
[2024-11-26] MEDS: KEFLEX PO (12:06)
--- NOTE | 2024-11-26 12:43 | W.PN.NEPH.PH ---
Today's Communication / Plan
-
torsemide
Assessment/Plan
-
9-year-old male with past medical history of significant heart disease including nonrheumatic aortic valve stenosis, atrial flutter status post pacemaker, CHF, CKD, chronic ambulatory dysfunction, neurogenic bladder requiring intermittent straight
cath, and iqt-bkpeavi-frcsmoedo diabetes, pulmonary hypertension and orthostatic hypotension presenting to the emergency department weakness weakness after a fall 2 days ago.
Patient tells me that about 6 weeks ago he was increased on his dose of torsemide and was placed on Xarelto. He said he lost about 20 pounds going from 170 to 150 pounds.
Impression.
Acute on chronic kidney disease. Admitting creatinine 1.5 repeat labs 1.7 with a sodium of 130 down to 128.
Neurogenic bladder requiring self-catheterization.
History of CHF.= August 2024 ejection fraction 55 to 60% with aortic stenosis.
Anemia with thrombocytopenia
AAS status post PPM.
Plan.
follow BMP
restart torsemide 10mg 6x/week
abx per primary team
chronic mattson
-
-
Date of Service: November 26, 2024
CC / HPI / ROS
-
Chief Complaint:
BENJAMÍN, hypoantremia
History of Present Illness:
BENJAMÍN/Cr down to 1.5
Na up to 134
BP stable
plts up to 108
Review of Systems:
feels well
no cp or osb
on RA, no n/v
Labs
-
Labs:
WBC 9.3 10^3/uL (4.8-10.8) 11/26/24 07:24
RBC 3.29 10^6/uL (4.70-6.10) L 11/26/24 07:24
Hgb 9.9 g/dL (13.0-18.0) L 11/26/24 07:24
Hct 30.0 % (39.0-52.0) L 11/26/24 07:24
Plt Count 108 10^3/uL (130-400) L 11/26/24 07:24
Sodium 134 mmol/L (135-145) L 11/26/24 07:24
Potassium 4.3 mmol/L (3.5-5.1) 11/26/24 07:24
Chloride 105 mmol/L (98-107) 11/26/24 07:24
Carbon Dioxide 19 mmol/L (22-30) L 11/26/24 07:24
BUN 33 mg/dl (9-20) H 11/26/24 07:24
Creatinine 1.5 mg/dL (0.7-1.3) H 11/26/24 07:24
eGFR 44.78 11/26/24 07:24
Glucose 132 mg/dl (70-99) H 11/26/24 07:24
Calcium 8.3 mg/dl (8.4-10.2) L 11/26/24 07:24
Cqb-E-Fwwzekbkekc Pept 53842 pg/ml 11/23/24 22:41
Albumin 3.0 g/dl (3.5-5.0) L 11/26/24 07:24
Physical Exam
-
Vital Signs:
Vital Signs
Temp Pulse Resp BP Pulse Ox
97.9 F 66 18 110/69 98
11/26/24 11:38 11/26/24 11:38 11/26/24 11:38 11/26/24 11:38 11/26/24 11:38
Cardiovascular:: Regular rate and rhythm
Respiratory:: Bilateral: Coarse and Bilateral: Rales
Lung Excursion:: Normal
Abdomen:: Nontender and Soft
Bowel Sounds:: Normal
Extremity Edema:: None: Bilateral:
--- NOTE | 2024-11-26 12:50 | W.PN.CARDCBS ---
Addendum entered and electronically signed by Lon Burch MD 11/26/24 16:02:
I saw and examined the patient.
The Manager Flight Operations's note was reviewed and I agree with the note.
Comment:
GEN: No distress, awake, Ox3
HEENT: supple, anicteric, mmm
LUNGS: CTA, no wheezes/rales
CV: Reg, S1/S2, 1/6 syst LSB, S3+
ABD: soft, BS+, NT/ND
EXT: No edema
NEURO: Gross non-focal
SKIN: No rash
PLan:
Volume status overall looks acceptable. Would restart torsemide in AM.
Creatinine improved and down to 1.5. Sodium also improved and up to 134.
LFTs remain abnormal. Will need to follow this as outpatient if discharged.
Avoid hepatotoxic drugs.
Continue Toprol and Xarelto.
Original Note:
Today's Communication / Plan
-
Restart p.o. torsemide in a.m.
likely resume OP jardiance upon DC if Cr stabilizes
Impression / Plan
-
Impression:
Syncope, possibly related to volume depletion, recent 20 pound weight loss after increase in torsemide
HFpEF
History of CABG
Mild to moderate aortic stenosis
Paroxysmal atrial flutter status post atrial flutter ablation in 2011
Paroxysmal atrial fibrillation
Type 2 diabetes
Moderate pulmonary hypertension
Orthostatic hypotension
Neurogenic bladder
Chronic kidney disease
[employer] pacemaker with recent lead revision
History of spinal fusion
Hypertension
Hypercholesterolemia
BENJAMÍN with concern for urosepsis
Gram-negative bacteremia/urosepsis
Echocardiogram August 2024: Borderline LVH, EF 55-60%, paradoxical septal motion, normal RV, borderline hypokinesis, pacing lead identified, mild left atrial enlargement, calcified and restricted aortic valve, peak gradient 17, mean gradient 10,
aortic valve area 1.1-1.2 cm2, trace-mild mitral regurgitation, MAC mild TR with pulmonary artery systolic pressure 55 mmHg
Echocardiogram 11/25/2024: EF 55-60%, dilated and hypokinetic RV, mild to moderate mitral regurgitation, mild aortic stenosis, moderate tricuspid regurgitation with severe pulmonary hypertension, 77 mmHg systolic
Cardiac catheterization January 2019: Mild left main tapering, mid LAD occluded, patent FELIX to LAD, patent vein graft to diagonal, very small ramus intermedius, 40% proximal circumflex, occluded OM 2, filling via patent vein graft, OM1 is very small,
dominant RCA, occluded proximal to PDA, PDA fills via widely patent vein graft with 70-80% ostial PDA and 80% stenosis of posterolateral jeopardizing flow to posterolateral, vein graft to posterolateral is occluded, EF 63%
Plan:
-he reports he is feeling improved
-no SOB and reports good urine output through mattson
-Cr improved to 1.5. will plan to resume OP torsemide 20mg MWF in AM
-echo 11/25 as above, EF preserved
-LFTs uptrending, follow.
-consider restarting OP jardiance upon DC
-in SR, occasional pacing noted. continue toprol, xarelto
-d/w nursing
Progress Note - Pre Billing Specialist
Subjective
Date of Service: November 26, 2024
Denies shortness of breath, chest pain. Reports good urine output
Objective
Labs:
11/26/24 07:24
11/26/24 07:24
Labs
Hgb 9.9 g/dL (13.0-18.0) L 11/26/24 07:24
Hct 30.0 % (39.0-52.0) L 11/26/24 07:24
Plt Count 108 10^3/uL (130-400) L 11/26/24 07:24
Sodium 134 mmol/L (135-145) L 11/26/24 07:24
Potassium 4.3 mmol/L (3.5-5.1) 11/26/24 07:24
BUN 33 mg/dl (9-20) H 11/26/24 07:24
Creatinine 1.5 mg/dL (0.7-1.3) H 11/26/24 07:24
Glucose 132 mg/dl (70-99) H 11/26/24 07:24
Troponins
11/23/24
22:41
Troponin I 0.023
Vital Signs and I&O:
Vital Signs
Temp Pulse Resp BP Pulse Ox
97.9 F 66 18 110/69 98
11/26/24 11:38 11/26/24 11:38 11/26/24 11:38 11/26/24 11:38 11/26/24 11:38
Vital Signs
Temp Pulse Resp BP Pulse Ox
97.9 F 66 18 110/69 98
11/26/24 11:38 11/26/24 11:38 11/26/24 11:38 11/26/24 11:38 11/26/24 11:38
Intake & Output
11/24/24 11/25/24 11/26/24 11/27/24
07:59 07:59 07:59 07:59
Intake Total 1680 / 1680 1840 / 1840 480 / 480
Output Total 100 / 100 1650 / 1650 3050 / 3050
Balance -100 / -100 30 / 30 -1210 / -1210 480 / 480
Physical Exam
Physical Exam
GEN: No distress, awake, alert, oriented x3
HEENT: supple, anicteric, mmm, EOMI
LUNGS: Scattered crackles bilateral bases, no wheezes
CV: Reg, S1/S2, 2/6 murmur
ABD: soft, BS+, NT/ND
EXT: No cyanosis, clubbing, edema
NEURO: Gross non-focal
SKIN: Warm, pink, dry. No rash
: twila
[2024-11-26] MEDS: DEMADEX 10 MG PO (14:01)
[2024-11-26] MEDS: TOPROL XL 25 MG PO (14:02)
--- NOTE | 2024-11-26 14:18 | W.DS.TRANS ---
DC Summary - Siderographist
-
Discharge Instructions:
Discharge Diagnosis/Procedures Sepsis due to UTI, acute kidney injury
Diet Diabetic, Carb Controlled,2 Gram Sodium
Activity As tolerated
Driving Restrictions As prior to admission
Bathing Restrictions None
Blood Work BMP next week with your primary care doctor
Instructions: *[facility] Heart Failure Instructions
Stand-Alone Forms:
Changes to Home Medications: Yes
Discharge Medications:
DC Medications w/original date entered in [employer]
metoprolol succinate 25 mg tablet,extended release 24 hr (Toprol XL) 25 mg PO DAILY@1400 Blood pressure 01/11/19
eosrlvnl-ono-snmpf acid 0.4 mg-lycopene 300 mcg-lutein 250 mcg tablet (Centrum Silver) 1 ea PO DAILY Supplement 01/11/19
simvastatin 20 mg tablet 20 mg PO DAILY High cholesterol 01/11/19
rivaroxaban 15 mg tablet (Xarelto) 15 mg PO DAILY Blood clot prevention/tx 02/13/23
vibegron 75 mg tablet (Gemtesa) 75 mg PO DAILY Overactive bladder 02/13/23
acetaminophen 325 mg tablet 650 mg (2 x 325 mg) PO Q4HPRN PRN mild pain/PEÑA/temp> 100.4F #0 tabs 02/15/23
empagliflozin 10 mg tablet (Jardiance) 10 mg PO DAILY 11/24/24
cephalexin 500 mg capsule 500 mg PO QID #44 caps 11/26/24
torsemide 10 mg tablet 10 mg PO MOTUWETHFRSA #30 tabs 11/26/24
Home Medication Changes
Pending Results: No
Additional Pending Results:
Torsemide dose reduced to 10 mg daily, 6 days a week.
[2024-11-26 15:34] VITALS: BP 125/65
--- NOTE | 2024-11-26 15:52 | PTCARENOTE ---
Pt's mattson removed at 1442. Pt voided 100ml of bloody urine. Will discharge home and pt will continue self catheterizations as prior to discharge.
== END 2024-11-26 16:13 | disposition home or self-care (01) | DRG 698 ==
LOC: 4 WEST ACU 01:43
PROVIDERS: Emergency Medicine; Internal Medicine; ADMITTING PHYSICIAN Internal Medicine; ATTENDING PHYSICIAN Hospitalist; CONSULT PHYSICIAN Internal Medicine Cardiovascular Disease; CONSULT PHYSICIAN Internal Medicine Nephrology; EMERGENCY PHYSICIAN Student in an Organized Health Care Education/Training Program; FAMILY PHYSICIAN Family Medicine
DX: T83.518A Infection and inflammatory reaction due to other urinary catheter, initial encounter (principal); A41.9 Sepsis, unspecified organism; R65.20 Severe sepsis without septic shock; N39.0 Urinary tract infection, site not specified; I13.0 Hypertensive heart and chronic kidney disease with heart failure and stage 1 through stage 4 chronic kidney disease, or unspecified chronic kidney disease; I48.92 Unspecified atrial flutter; I50.32 Chronic diastolic (congestive) heart failure; E87.1 Hypo-osmolality and hyponatremia; N17.9 Acute kidney failure, unspecified; I48.0 Paroxysmal atrial fibrillation; E11.40 Type 2 diabetes mellitus with diabetic neuropathy, unspecified; E11.22 Type 2 diabetes mellitus with diabetic chronic kidney disease; N18.9 Chronic kidney disease, unspecified; E78.00 Pure hypercholesterolemia, unspecified; Y83.8 Other surgical procedures as the cause of abnormal reaction of the patient, or of later complication, without mention of misadventure at the time of the procedure; D64.9 Anemia, unspecified; D69.6 Thrombocytopenia, unspecified; I27.20 Pulmonary hypertension, unspecified; Z79.01 Long term (current) use of anticoagulants; Z79.899 Other long term (current) drug therapy; Z91.148 Patient's other noncompliance with medication regimen for other reason
CPT/HCPCS: 93308; 70450; 71046; 76604; 76770; 80053; 81003; 81015; 82550; 82570; 82962; 83036; 83735; 83880; 84145; 84300; 84443; 84484; 85025; 85027; 87040; 87086; 87149; 87186; 87205; 87502; 87811; 93005; 93321; 93325; 96361; 96374; 97110; 97163; 97530; 99285

== ENCOUNTER → 2025-07-31 10:53 | Outpatient (REF) | payer OTHER, SELFPAY | LOC: PET 10:53 | PROVIDERS: ATTENDING PHYSICIAN Internal Medicine Hematology & Oncology | DX: C61 Malignant neoplasm of prostate (principal) | CPT/HCPCS: 78815 ==

== ENCOUNTER 2025-08-05 09:57 | Emergency (ER) | payer OTHER, SELFPAY ==
[2025-08-05 10:04] VITALS: BP 142/85
--- NOTE | 2025-08-05 10:48 | ED.GENMED ---
History of Present Illness
<Roselyn Escoto PA-C - Last Filed: 08/05/25 16:55>
General
Chief Complaint: Fall
Source: patient and spouse
Exam Limitations: none
Time Seen by Provider: 08/05/25 10:35
History of Present Illness
History of Present Illness:
89yoM with a history of coronary artery disease s/p CABG, CHF, atrial fibrillation on Xarelto, sick sinus syndrome s/p pacemaker, type 2 diabetes, hypertension, and hyperlipidemia presenting for evaluation after a fall. Patient slipped on a rug in
the bathroom 2 days ago and fell. He struck his left lower rib cage against a doorknob. He denies hitting his head. He had a second fall yesterday when he was standing and attempting to fold clothing. He stepped backwards and lost his balance
and again fell on his left side. Patient reports severe pain in his rib cage and believes he broke a rib. He is also having trouble breathing due to this pain. He is taking Tylenol which helps intermittently. He is otherwise asymptomatic and
denies any fevers, chills, vomiting, difficulty urinating.
Past History
<Roselyn Escoto PA-C - Last Filed: 08/05/25 16:55>
Past History
ED Past Medical History: Arrthythmia (Paroxysmal atrial fibrillation), CAD, HTN, Hypercholesterolemia, NIDDM, Other (Diverticulosis, GI bleed March 2015) and Other (kidney stones)
ED Past Surgical History: Cardiac (pacer, CABG x4)
Social History
Tobacco: Non-smoker
Alcohol: None
Drug: None
Personal:
Living: with family
Employment: Retired
Family History
Family History: Other (Noncontributory)
Phy Exam
<Roselyn Escoto PA-C - Last Filed: 08/05/25 16:55>
General Physical Exam
General Presentation: well appearing
General Skin: warm and dry
General Habitus: normal and elderly
General Mental: alert
ENT Exam
ENT Exam: normocephalic
Cardiovascular Exam
Cardiovascular Exam: regular rate/rhythm
Pulmonary Exam
Pulmonary Exam: lungs clear, no respiratory distress, no rales, no crackles, no rhonchi, no wheezing and other (+Tenderness to L lower ribcage. No crepitus or ecchymosis. Bilateral breath sounds intact.)
Gastrointestinal Exam
Gastrointestinal Exam: soft, non distended and other (+LUQ tenderness. No rebound or guarding.)
Neurological Exam
Neurological Exam: alert
[place] Coma Scale
Eye Opening: Spontaneous
Verbal Response: Oriented
Motor Response: Obeys Commands
GCS Total Score: 15
Skin Exam
Skin Exam: normal color and warm/dry
Psychiatric Exam
Psychiatric Exam: normal mood/affect
<Carmelina Olivera MD - Last Filed: 08/05/25 16:00>
[place] Coma Scale
GCS Total Score: 15
Course
<Roselyn Escoto PA-C - Last Filed: 08/05/25 16:55>
Orders/Labs/Results
Orders:
Orders
08/05/25
Electrocardiogram (*1) Stat
Comment: ALREADY DONE
08/05/25 10:47
CT Cervical Spine W/o Iv Contr Urgent
Comment:
Reason For Exam: multiple falls
CT Head W/o Iv Contrast Urgent
Comment:
Reason For Exam: multiple falls
Chest/Abd/Pelvis w Contrast CT [CT Chest/abd/pel W Iv Cont] Urgent
Comment:
Reason For Exam: L lower rib/LUQ pain after fall
HYDROmorphone [Dilaudid] 0.5 mg IV NOW STA
08/05/25 11:09
Complete Blood Count/With Diff Urgent
Comprehensive Metabolic Panel Urgent
Magnesium Urgent
08/05/25 13:12
Electrocardiogram (*1) Urgent
Reason for Study: Tachycardia
EKG- Treatment ONCE
Interrogate Pacemaker- Treatment ONCE
08/05/25 14:32
Add On- LAB Urgent
Tests Added?: magnesium
08/05/25 15:09
Incentive Spirometry [Rx Incentive Spirometry] [RESP] Urgent
Frequency: q1h while awake
Pt Eval And Treat Urgent
Treatment: eval for possible rehab
Activity Level: Out of Bed- Ad Katherin
08/05/25 15:20
Acetaminophen [Tylenol] 1,000 mg PO NOW STA
Lidocaine [Lidocaine 4% Patch] 1 patch TOPICAL NOW STA
Apply Lidocaine patch(s) to:: L ribcage
Oxycodone [Roxicodone] 5 mg PO NOW STA
Abnormal Lab Results
08/05/25
11:09
RBC 3.55 L 10^6/uL
(4.70-6.10)
Hgb 11.1 L g/dL
(13.0-18.0)
Hct 33.3 L %
(39.0-52.0)
MCH 31.3 H pg
(27.0-31.0)
MPV 10.6 H fL
(7.4-10.4)
Absolute Monos (auto) 0.7 H 10^3/uL
(0.1-0.6)
Lymphocytes % 18.3 L %
(20.5-51.1)
BUN 31 H mg/dl
(9-20)
Glucose 254 H mg/dl
(70-99)
Magnesium 2.5 H mg/dl
(1.6-2.3)
08/05/25 11:09
08/05/25 11:09
Vital Signs
Initial and Last Documented VS:
Initial Vital Signs
Temp Pulse Resp BP Pulse Ox
98.2 F 76 16 142/85 98
08/05/25 10:04 08/05/25 10:04 08/05/25 10:04 08/05/25 10:04 08/05/25 10:04
Last Documented Vital Signs
Temp Pulse Resp BP Pulse Ox
98.2 F 80 18 159/74 98
08/05/25 10:04 08/05/25 15:00 08/05/25 15:00 08/05/25 15:00 08/05/25 15:00
<Carmelina Olivera MD - Last Filed: 08/05/25 16:00>
Orders/Labs/Results
Orders:
Orders
08/05/25
Electrocardiogram (*1) Stat
Comment: ALREADY DONE
08/05/25 10:47
CT Cervical Spine W/o Iv Contr Urgent
Comment:
Reason For Exam: multiple falls
CT Head W/o Iv Contrast Urgent
Comment:
Reason For Exam: multiple falls
Chest/Abd/Pelvis w Contrast CT [CT Chest/abd/pel W Iv Cont] Urgent
Comment:
Reason For Exam: L lower rib/LUQ pain after fall
HYDROmorphone [Dilaudid] 0.5 mg IV NOW STA
08/05/25 11:09
Complete Blood Count/With Diff Urgent
Comprehensive Metabolic Panel Urgent
Magnesium Urgent
08/05/25 13:12
Electrocardiogram (*1) Urgent
Reason for Study: Tachycardia
EKG- Treatment ONCE
Interrogate Pacemaker- Treatment ONCE
08/05/25 14:32
Add On- LAB Urgent
Tests Added?: magnesium
08/05/25 15:09
Incentive Spirometry [Rx Incentive Spirometry] [RESP] Urgent
Frequency: q1h while awake
Pt Eval And Treat Urgent
Treatment: eval for possible rehab
Activity Level: Out of Bed- Ad Katherin
08/05/25 15:20
Acetaminophen [Tylenol] 1,000 mg PO NOW STA
Lidocaine [Lidocaine 4% Patch] 1 patch TOPICAL NOW STA
Apply Lidocaine patch(s) to:: L ribcage
Oxycodone [Roxicodone] 5 mg PO NOW STA
Abnormal Lab Results
08/05/25
11:09
RBC 3.55 L 10^6/uL
(4.70-6.10)
Hgb 11.1 L g/dL
(13.0-18.0)
Hct 33.3 L %
(39.0-52.0)
MCH 31.3 H pg
(27.0-31.0)
MPV 10.6 H fL
(7.4-10.4)
Absolute Monos (auto) 0.7 H 10^3/uL
(0.1-0.6)
Lymphocytes % 18.3 L %
(20.5-51.1)
BUN 31 H mg/dl
(9-20)
Glucose 254 H mg/dl
(70-99)
Magnesium 2.5 H mg/dl
(1.6-2.3)
08/05/25 11:09
08/05/25 11:09
Vital Signs
Initial and Last Documented VS:
Initial Vital Signs
Temp Pulse Resp BP Pulse Ox
98.2 F 76 16 142/85 98
08/05/25 10:04 08/05/25 10:04 08/05/25 10:04 08/05/25 10:04 08/05/25 10:04
Last Documented Vital Signs
Temp Pulse Resp BP Pulse Ox
98.2 F 80 18 159/74 98
08/05/25 10:04 08/05/25 15:00 08/05/25 15:00 08/05/25 15:00 08/05/25 15:00
<Roselyn Escoto PA-C - Last Filed: 08/05/25 16:55>
MDM/Problems Addressed
Differential Diagnosis Includes:
89yoM here with L sided rib pain after 2 mechanical falls within the past 24 hours. Reproducible tenderness on exam without ecchymosis and breath sounds are intact. Differential diagnosis includes but is not limited to: rib contusion, rib fracture,
pneumothorax, hemothorax, splenic injury
Initial ED plan: Check CBC, CMP, and nam scan to evaluate for traumatic injury. IV Dilaudid for pain.
<Roselyn Escoto PA-C - Last Filed: 08/05/25 16:55>
*Pulse Oximetry
SaO2: 98
Oxygen Mode of Delivery: Room air
Patient hypoxic: no
*Critical Care Note
Total Time (30-74mins, 75-104mins- exclusive of procedures): Not Applicable
<Roselyn Escoto PA-C - Last Filed: 08/05/25 16:55>
Update Note
Update Note:
Imaging reveals mildly displaced L 11th rib fracture without other injuries. While in emergency department, I was called to bedside by nursing staff due to tachycardia. Morphology changes noted on telemetry review but heart rate normal when checked
by pulse and EKG. Patient is asymptomatic from this perspective. Rhythm strips sent to cardiology and I discussed with Dr. Ballesteros who states there is nothing to do and this is likely 2/2 to some of the electrical impulses coming from the pacemaker
and some originating from the SA node. Pacemaker interrogated and no episodes of atrial or ventricular tachycardia/fibrillation occurred. Physical therapy consulted and case signed out to Dr. Olivera pending PT evaluation.
ED Attending Note
<Roselyn Escoto PA-C - Last Filed: 08/05/25 16:55>
-
Portions of this chart may have been created with voice recognition software.� Occasional wrong word or��sound alike� substitutions may have occurred due to the inherent limitations of voice recognition software.
<Carmelina Olivera MD - Last Filed: 08/05/25 16:00>
ED Attending Note
Patient seen and examined by attending physician: Yes
I performed the substantive portion of visit, reviewed & personally made and approve the management plan that is documented in note by myself or ESTEFANIA.: Yes
ED Attending Note:
I have seen and evaluated the patient with a [id number] encounter. I have spoken to the [ESTEFANIA] and involved in the medical history, the physical exam, medical decision making.
Evaluation and management service: agree unless noted differently below.
Results interpretation: agree unless noted differently below.
89-year-old man presenting to the emergency department falls and rib pain. Patient states that he had 2 mechanical trip and falls yesterday and the day before. He is having some left-sided rib pain and left lower back pain. Did not hit his head
or lose consciousness. He is on Xarelto. He denies any numbness tingling or weakness during my evaluation patient is resting comfortably. He does have tenderness over the left lateral ribs. No obvious crepitus. No ecchymoses. No neurodeficits.
Will proceed with trauma scans. Will likely have PT evaluate patient if trauma scans are generally unremarkable
CT scan notable for 1 rib fracture. Pain is controlled. Appropriate volumes on incentive spirometer. PT evaluated patient and recommended discharge home. His pain is well-controlled and he is ambulatory. Will discharge with short course of
oxycodone.
Of note patient did have morphology changes on the rhythm strip while he was in the room. Patient had no symptoms. He does have a pacemaker. We did discuss with cardiology who states nothing to do at this time. Pacemaker interrogation was
unremarkable. He is cleared from a cardiac standpoint.
Discharge Plan
Departure
Patient Disposition: Home (Routine Discharge)
Date of Disposition: 08/05/25
Time of Disposition: 15:57
Patient with high blood pressure during this ER visit?: Yes
Discharge Problem:
Fracture, rib
Instructions: Rib fracture or bruised rib - ED (DC)
Prescriptions:
New
oxycodone 5 mg tablet
5 mg PO Q8H PRN (Reason: Pain) Qty: 7 0RF
No Action
simvastatin 20 MG tablet
20 mg PO DAILY
metoprolol succinate [Toprol XL] 25 MG tablet extended release 24 hr
25 mg PO DAILY@1400
Xarelto 15 mg Tablet
15 mg PO DAILY
acetaminophen 325 mg Tablet
650 mg PO Q4HPRN PRN (Reason: mild pain/PEÑA/temp> 100.4F) Qty: 0 0RF
Theragen Tablet
1 tab PO DAILY
mirabegron [Myrbetriq] 50 mg Tablet Extended Release 24 Hr
50 mg PO DAILY@1200
torsemide 10 mg tablet
10 mg PO MOTUFRSA
Referrals:
Pranav Matos MD [Family Provider, [facility]]
Activity Restrictions/Additional Instructions:
We discussed pain medications:
You may take Tylenol (also known as Acetaminophen) for pain.
You may take 1000mg Acetaminophen (two extra-strength tablets) per dose, which should be taken every 6-8 hours, or three times a day.
If you have normal strength Tylenol, you can take 650mg (two normal strength tablets) every 4-6 hours.
Do not take more than 3,000mg (3 grams) of Acetaminophen per day.
Never take more than as directed on the bottle.
You may also benefit from using a Lidocaine Patch (also known as 'Salon Pas'), which is an over the counter pain patch.
Place it just over the site of pain, avoiding areas of skin damage, as per instructions on the patch.
You may use Oxycodone for severe or breakthrough pain. This medication can cause constipation and drowsiness. Do not drive or make important decisions while taking it. Consider using a laxative such as Senna while taking this medication.
Please see your primary care doctor soon to be reevaluated and to make sure that you are improving. We have included information about establishing care with a doctor if you do not have one.
We talked about your evaluation, diagnosis, and treatment in the Emergency Department today. You must see your primary doctor for recheck and followup care in order to evaluate your progress or any changes. Have your doctor recheck the test
results/information from the ED visit. As discussed, RETURN to the ED if you develop worsening/changing symptoms or have no improvement in symptoms after the treatments provided.
Interventions
Interventions:
*Risk Screen - Suicide Last Done: 08/05/25 10:04
*General Assessment Last Done: 08/05/25 11:20
*Neglect/Abuse Screening Last Done: 08/05/25 10:04
*ED COVID-19 Vaccine History Last Done: 08/05/25 11:20
*ED Influenza Vaccine History Last Done: 08/05/25 11:20
ED-Musculoskeletal Assessment Last Done: 08/05/25 12:22
ED- Neurological Assessment Last Done: 08/05/25 12:20
ED-Skin Assessment Last Done: 08/05/25 12:23
Discharge Date and Time
Print Language: TRISTANIAN
[2025-08-05 11:02] VITALS: BMI 25.9
[2025-08-05] MEDS: DILAUDID 0.5 MG IV (11:12)
[2025-08-05 11:17] VITALS: BP 174/81
[2025-08-05 11:19] LABS: Hematocrit 33.3 % (39.0-52.0); Hemoglobin 11.1 g/dL (13.0-18.0); Mean Corp Hgb Conc. 33.3 g/dL (33.0-37.0); Mean Corpuscular Volume 93.8 fL (80.0-94.0); Nucleated Red Blood Cells % 0 % (-); Platelet Count 141 10^3/uL (130-400); Red Cell Dist. Width 14.1 % (11.5-14.5)
[2025-08-05 12:00] VITALS: BP 144/67
[2025-08-05 12:11] LABS: ALT (SGPT) 16 U/L (0-50); AST (SGOT) 23 U/L (17-59); Albumin 4.1 g/dl (3.5-5.0); Alkaline Phosphatase 109 U/L (38-126); Blood Urea Nitrogen 31 mg/dl (9-20); Calcium 9.4 mg/dl (8.4-10.2); Carbon Dioxide 26 mmol/L (22-30); Chloride 107 mmol/L (98-107); Estimated Creatinine Clearance 40 ml/min; Glucose 254 mg/dl (70-99); Potassium 4.9 mmol/L (3.5-5.1); Sodium 136 mmol/L (135-145); Total Protein 7.1 g/dl (6.3-8.2); eGFR 58.17
[2025-08-05 14:30] VITALS: BP 172/81
[2025-08-05 15:00] VITALS: BP 159/74
[2025-08-05 15:07] LABS: Magnesium 2.5 mg/dl (1.6-2.3)
[2025-08-05] MEDS: TYLENOL 1000 MG PO (15:37)
[2025-08-05] MEDS: LIDOCAINE 4% PATCH 1 PATCH TOPICAL (15:37)
[2025-08-05] MEDS: ROXICODONE 5 MG PO (15:38)
[2025-08-05 15:58] VITALS: BP 159/74; PULSE 80
--- NOTE | 2025-08-05 17:09 | EDCM ---
Received TT from ED nurse that PT recommended HH, pt left ED before I could speak with him. Has history with [facility] earlier this year. [facility] referral placed in [facility]. Sahil from PT let me know he notified pt's PCP.
== END 2025-08-05 17:34 | disposition home or self-care (01) ==
LOC: EMR 09:57
PROVIDERS: Physician Assistant; EMERGENCY PHYSICIAN Student in an Organized Health Care Education/Training Program; FAMILY PHYSICIAN Family Medicine
DX: S22.32XA Fracture of one rib, left side, initial encounter for closed fracture (principal); W01.198A Fall on same level from slipping, tripping and stumbling with subsequent striking against other object, initial encounter; W18.39XA Other fall on same level, initial encounter; Y92.002 Bathroom of unspecified non-institutional (private) residence as the place of occurrence of the external cause; E11.9 Type 2 diabetes mellitus without complications; I25.810 Atherosclerosis of coronary artery bypass graft(s) without angina pectoris; I48.0 Paroxysmal atrial fibrillation; I11.0 Hypertensive heart disease with heart failure; I50.9 Heart failure, unspecified; E78.00 Pure hypercholesterolemia, unspecified; I49.5 Sick sinus syndrome; Z95.0 Presence of cardiac pacemaker; R29.6 Repeated falls; Z79.01 Long term (current) use of anticoagulants; Z95.1 Presence of aortocoronary bypass graft
CPT/HCPCS: 99284; 96374; 70450; 71260; 72125; 74177; 80053; 83735; 85025; 93005; 93288; Q9967